=== PATIENT | female | born 1975 | race Caucasian/White ===

== ENCOUNTER 2016-12-24 17:02 | Emergency (ER) | payer OTHER ==
[2016-12-24 17:09] VITALS: BP 138/77; RESP 20
--- NOTE | 2016-12-24 17:41 | ED ---
General Adult HPI - General Chief complaint: Chest Pain Stated complaint: Rib Pain Time Seen by Provider: 12/24/16 17:20 Source: patient, family, RN notes reviewed Mode of arrival: ambulatory Limitations: no limitations - History of Present Illness Initial comments: 41-year-old female presenting for right chest pain. Patient states that she has pain in her right chest towards the rear portion of her breast in her axilla when she takes deep breaths only. The pain has been present for the past 3 days. She denies any injury or strain prior to the onset of the pain. She does smoke tobacco. States she has tried naproxen without significant improvement of the pain. She denies any significant medical history other than cervical cancer several years ago which was treated locally. She does not currently take any medications. She denies any anterior chest pain or shortness of breath. She denies known cardiac history. - Related Data Home Medications Medication Instructions Recorded Confirmed No Known Home Medications [No 12/24/16 12/24/16 Known Home Medications] Allergies Allergy/AdvReac Type Severity Reaction Status Date / Time morphine Allergy Confusion Verified 12/24/16 17:47 Review of Systems ROS Statement: Those systems with pertinent positive or pertinent negative responses have been documented in the HPI. ROS Other: All systems not noted in ROS Statement are negative. Past Medical History Past Medical History: Cancer History of Any Multi-Drug Resistant Organisms: None Reported Past Surgical History: Section Additional Past Surgical History / Comment(s): cervical cancer Past Psychological History: No Psychological Hx Reported Smoking Status: Current every day smoker Past Alcohol Use History: Occasional Past Drug Use History: Marijuana General Exam - General Exam Comments Initial Comments: General: Awake and Alert. No acute distress. Does not appear acutely ill. Eyes: LOREE, EOM intact. No nystagmus. No scleral icterus. HENT: Atraumatic, normocephalic. Mucous membranes moist. Trachea midline. Neck: The neck is supple, there is no tenderness or JVD. Cardiovascular: Regular rate and rhythm. No murmur, rub, or gallop is appreciated. Distal pulses intact. Respiratory: Lungs are clear to auscultation bilaterally. No wheezes, rales, rhonchi. No respiratory distress. Gastrointestinal: Soft, Nontender. No rebound or guarding. Non-distended. No masses or organomegaly noted. No CVA tenderness. Musculoskeletal: No tenderness. Normal ROM. No gross deformity. No strength deficits. Neurological: A&Ox3. CN II-XII grossly intact, There are no obvious motor or sensory deficits. Coordination appears grossly intact. Speech is normal. Skin: Skin is warm and dry and no rashes or lesions are noted. Psychiatric: Cooperative, appropriate mood & affect, normal judgment. Limitations: no limitations Course Vital Signs 12/24/16 17:07 Temperature 98.9 F Pulse Rate 100 Respiratory 20 Rate Blood Pressure 138/77 O2 Sat by Pulse 98 Oximetry Medical Decision Making - Medical Decision Making 41-year-old female presenting for right chest pain. There is no reproducible tenderness on exam. She states pain is present with deep inspiration only. Patient states she believes it is just a pulled muscle. She states that she has nothing wrong with her heart and declines EKG at this time. Discussed rationale for screening EKG in the setting of chest pain, patient voices understanding. Patient declines pain medication at this time. Chest x-ray performed and unremarkable. Discussed likely musculoskeletal pain and continued treatment with anti- inflammatory medications. Patient was offered further evaluation and lab work. Discussed consideration for possible PE although patient states no history of blood clot and declines any further testing at this time. Discussed NSAIDs for pain management. Patient declines any other pain medications at this time. Discussed close follow-up with PCP. Discussed concerning signs symptoms for immediate return to the ED. Discussed recommendation and benefits of smoking cessation. Patient and are agreeable with plan of discharge home. - Radiology Data Radiology results: report reviewed, image reviewed Disposition Clinical Impression: Right-sided chest wall pain, Tobacco abuse Disposition: HOME SELF-CARE Condition: Stable Instructions: Costochondritis (ED), How to Stop Smoking (ED) Additional Instructions: Please take Tylenol, Motrin, or Naproxen for pain as needed. Referrals: None,Stated [Primary Care Provider] - 1-2 days Time of Disposition: 18:39
--- NOTE | 2016-12-24 18:10 | XR ---
EXAMINATION TYPE: XR chest 2V DATE OF EXAM: 12/24/2016 5:53 PM COMPARISON: NONE HISTORY: Chest pain TECHNIQUE: Frontal and lateral views of the chest are obtained. FINDINGS: Heart and mediastinum are normal. Lungs are clear. Diaphragm is normal. Bony thorax is int act. IMPRESSION: Normal chest.
[2016-12-24 19:02] VITALS: PULSE 78; TEMP 97.9
== END 2016-12-24 19:02 | disposition home or self-care (01) ==
LOC: EC 17:02
DX: R07.89 Other chest pain (principal); F17.200 Nicotine dependence, unspecified, uncomplicated; Z88.5 Allergy status to narcotic agent
CPT/HCPCS: 71020; 99284

== ENCOUNTER 2018-04-04 15:29 | Emergency (ER) | payer OTHER ==
[2018-04-04 15:33] VITALS: BP 108/73; PULSE 84; RESP 20; TEMP 98.8
--- NOTE | 2018-04-04 16:09 | XR ---
Right knee HISTORY: Pain 3 views of the right knee Bone mineralization, joint spaces and alignment are maintained. No evident joint effusion. Suspect so me minimal marginal spurring medial compartment. IMPRESSION: Suspect osteoarthritis. Knee MRI may be of benefit.
--- NOTE | 2018-04-04 16:12 | ED ---
General Adult HPI - General Chief complaint: Extremity Injury, Lower Stated complaint: Knee Pain Time Seen by Provider: 04/04/18 15:34 Source: patient, RN notes reviewed Mode of arrival: ambulatory Limitations: no limitations - History of Present Illness Initial comments: 42-year-old female presents to the emergency department for a chief complaint of right knee pain 2 weeks. Patient states that she was frying rash when some fell on the floor and she slipped tonight. Patient states she did not fall all the way to the ground but has had knee pain ever since. Patient states the pain is on the anterior portion of the knee. She denies pain behind the knee or in the calf. Patient denies any ankle or foot pain. Patient did not hit her head or sustain any other injuries. Patient states she can walk on it but tries not to bend it when doing so. Patient states bending it makes it worse. Patient has not taken anything for pain because she took Motrin when it first happened and she thinks the Motrin made it worse. Patient does not want anything for pain in the emergency department. Patient has no other complaints at this time including shortness of breath, chest pain, abdominal pain, nausea or vomiting, headache, or visual changes. - Related Data Previous Rx's Medication Instructions Recorded Ibuprofen [Motrin] 600 mg PO Q6HR PRN #20 tab 04/04/18 Allergies Allergy/AdvReac Type Severity Reaction Status Date / Time morphine Allergy Confusion Verified 04/04/18 15:33 Review of Systems ROS Statement: Those systems with pertinent positive or pertinent negative responses have been documented in the HPI. ROS Other: All systems not noted in ROS Statement are negative. Past Medical History Past Medical History: Cancer Additional Past Medical History / Comment(s): cervical cancer History of Any Multi-Drug Resistant Organisms: None Reported Past Surgical History: Section Additional Past Surgical History / Comment(s): cervical cancer Past Psychological History: No Psychological Hx Reported Smoking Status: Current every day smoker Past Alcohol Use History: Occasional Past Drug Use History: Marijuana General Exam Limitations: no limitations General appearance: alert, in no apparent distress Head exam: Present: atraumatic, normocephalic, normal inspection Eye exam: Present: normal appearance ENT exam: Present: normal exam, mucous membranes moist Neck exam: Present: normal inspection, full ROM. Absent: tenderness, meningismus, lymphadenopathy Respiratory exam: Present: normal lung sounds bilaterally. Absent: respiratory distress, wheezes, rales, rhonchi, stridor Cardiovascular Exam: Present: regular rate, normal rhythm, normal heart sounds. Absent: systolic murmur, diastolic murmur, rubs, gallop, clicks Extremities exam: Present: tenderness (Patient has right anterior knee tenderness. No tenderness on the posterior aspect of the right knee.), normal capillary refill (Refill less than 2 seconds and radial pulse 2+ in the right lower extremity.), other (Sensation intact in the right lower extremity.). Absent: full ROM (Patient has about 30 flexion of the right knee due to pain.) , joint swelling (No swelling, redness, ecchymosis, cellulitic changes, or signs of infection noted in the right knee.), calf tenderness (No tenderness in the right calf. Negative Homans sign.) Course Vital Signs 04/04/18 15:31 Temperature 98.8 F Pulse Rate 84 Respiratory 20 Rate Blood Pressure 108/73 O2 Sat by Pulse 99 Oximetry Medical Decision Making - Medical Decision Making 42-year-old female with chief complaint of right knee pain after falling 2 weeks ago. Pain has been consistent since that time. Patient has not been taking Motrin or Tylenol. She has been icing it. Patient has limited flexion of the right knee to about 30. No cellulitic changes, signs of infection, ecchymosis, swelling. No pain in the calf or posterior right knee. Negative Homans sign. Patient visualized walking on right knee. X-ray of the right knee shows bone mineralization, joint spaces, and alignment are maintained. No evidence of joint effusion. Suspect some minimal marginal spurring in the medial compartment. Suspect osteoarthritis. Patient has a nice brace on already and will use that instead of an Tima wrap. She was given Rocephin for Motrin. Patient will follow-up with orthopedics in one to 2 days. She will return to the emergency Department if she has any worsening symptoms. Disposition Clinical Impression: Knee pain, right Disposition: HOME SELF-CARE Condition: Good Instructions: Knee Pain (ED) Additional Instructions: Please take Motrin as needed for pain and to reduce inflammation. Please rest ice and elevate the right knee. Use brace for comfort. You may use crutches if needed for ambulation. Follow-up with orthopedics in one to 2 days. Return to the emergency department if you have any worsening symptoms. Prescriptions: Ibuprofen [Motrin] 600 mg PO Q6HR PRN #20 tab PRN Reason: Pain Is patient prescribed a controlled substance at d/c from ED?: No Referrals: Blair Sargent DO [Doctor of Osteopathic Medicine] - 1-2 days Time of Disposition: 16:23
== END 2018-04-04 16:37 | disposition home or self-care (01) ==
LOC: EC 15:29
DX: M25.561 Pain in right knee (principal); F17.200 Nicotine dependence, unspecified, uncomplicated; Z88.5 Allergy status to narcotic agent
CPT/HCPCS: 99283

== ENCOUNTER → 2018-04-06 | Outpatient (CLI) | payer OTHER ==
--- NOTE | 2018-04-06 14:56 | MR ---
EXAMINATION TYPE: MR knee RT wo con DATE OF EXAM: 04/06/2018 COMPARISON: Radiographs 04/04/2018 HISTORY: 42-year-old female Right knee pain / swelling x2 weeks, slipped and fall TECHNIQUE: Multiplanar, multisequence imaging of the right knee is performed without IV contrast. FINDINGS: ACL, PCL, MCL, and LCL complex are intact. There is some degenerative signal in the posterior horn of the medial meniscus without discrete menis nakia tear. There is moderate irregular cartilage loss along the mid weightbearing aspect of the medial compartment. Lateral meniscus is intact with mild diffuse cartilage thinning. The patellofemoral compartment cartilage volume appears maintained. However, there is extensive bone bruise involving the patella with coronal T1 sequence suggesting com plex, multidirectional incomplete fractures of the patella, present, refer to coronal image 5. There is no displaced fracture fragment. Gas edematous change within the quadriceps musculature and additio nal edema tracking along the planes of the quadriceps tendon. Some interstitial tearing is suggested. Edema within the suprapatellar fat pad and prominent prepatellar soft tissue swelling is also demons trated. A trace, 2 mm thick prepatellar bursitis is noted. Trace fluid within the deep infrapatellar bursa as well. No significant knee joint effusion. No significant Walton's cyst. Normal popliteal artery anatomy in muscle bulk. No suspicious bone marrow replacement. IMPRESSION: 1. Severe patellar bone bruise with multiple incomplete fracture lines. No displaced fracture fragmen t. 2. Associated soft tissue swelling, quadriceps muscle strain, and some reactive fluid or minimal inte rstitial tearing along the quadriceps tendon. 3. Mild medial compartmental osteoarthrosis.
== END | disposition home or self-care (01) ==
LOC: RADMRIMAIN 14:01
PROVIDERS: ATTEND Internal Medicine
DX: S82.001A Unspecified fracture of right patella, initial encounter for closed fracture (principal); M17.11 Unilateral primary osteoarthritis, right knee

== ENCOUNTER 2019-08-01 08:03 | Emergency (ER) | payer OTHER ==
[2019-08-01 08:08] VITALS: RESP 16
[2019-08-01] MEDS ORDERED: SODIUM CHLORIDE 0.9% 1,000 ML IV STA ×2 (08:20)
[2019-08-01] MEDS ORDERED: methylPREDNISolone SOD SUCCI 125 MG/2 ML VIAL IV STA (08:20)
[2019-08-01] MEDS ORDERED: IPRATROPIUM-ALBUTEROL 3 ML NEB INHALATION STA ×2 (08:20→10:12)
--- NOTE | 2019-08-01 08:25 | ED ---
SOB HPI - General Chief Complaint: Shortness of Breath Stated Complaint: SOB Time Seen by Provider: 08/01/19 08:05 Source: EMS, RN notes reviewed, old records reviewed Mode of arrival: EMS Limitations: no limitations - History of Present Illness Initial Comments: Patient is a 43-year-old female, history of smoker, she presents today for evaluation for cough congestion, shortness of breath. She reports that symptoms started with upper respiratory congestion ALLERGIES 2 weeks ago. She's been taking Mucinex, and ALLERGY medication with worsening symptoms Patient states it feels like infection is also subtle than to her lungs and chest. Patient states that she has had a relatively nonproductive cough but does have bronchospasms taking deep breath. Patient states that she has not been hospitalized or diagnosed with pneumonia in the past. Patient has had no history of sick contacts she is aware of. she is a smoker. - Related Data Home Medications Medication Instructions Recorded Confirmed diphenhydrAMINE HCL [Children's 25 mg PO Q6H PRN 08/01/19 08/01/19 Benadryl Allergy] guaiFENesin SYRUP 100MG/5ML 200 mg PO TID PRN 08/01/19 08/01/19 [Robitussin] Previous Rx's Medication Instructions Recorded Ipratropium-Albuterol Nebulize 3 ml INHALATION TID #30 neb 08/01/19 [Duoneb 0.5 mg-3 mg/3 ml Soln] Levofloxacin [Levaquin] 750 mg PO DAILY #5 tab 08/01/19 predniSONE 50 mg PO DAILY #5 tablet 08/01/19 Allergies Allergy/AdvReac Type Severity Reaction Status Date / Time morphine AdvReac Confusion Verified 08/01/19 08:58 Review of Systems ROS Statement: Those systems with pertinent positive or pertinent negative responses have been documented in the HPI. ROS Other: All systems not noted in ROS Statement are negative. Past Medical History Past Medical History: Cancer Additional Past Medical History / Comment(s): cervical cancer History of Any Multi-Drug Resistant Organisms: None Reported Past Surgical History: Section Additional Past Surgical History / Comment(s): cervical cancer Past Psychological History: No Psychological Hx Reported Smoking Status: Current every day smoker Past Alcohol Use History: Occasional Past Drug Use History: Marijuana General Exam - General Exam Comments Initial Comments: 43-year-old female. Alert and oriented. No distress. Limitations: no limitations General appearance: alert, in no apparent distress Head exam: Present: atraumatic, normocephalic, normal inspection Eye exam: Present: normal appearance, PERRL, EOMI. Absent: scleral icterus, conjunctival injection, periorbital swelling ENT exam: Present: normal exam, mucous membranes moist Neck exam: Present: normal inspection. Absent: tenderness, meningismus, lymphadenopathy Respiratory exam: Present: wheezes (bilaterally ). Absent: normal lung sounds bilaterally, respiratory distress, rales, rhonchi, stridor Cardiovascular Exam: Present: regular rate, normal rhythm, normal heart sounds. Absent: systolic murmur, diastolic murmur, rubs, gallop, clicks GI/Abdominal exam: Present: soft, normal bowel sounds. Absent: distended, tenderness, guarding, rebound, rigid Extremities exam: Present: normal inspection, full ROM, normal capillary refill. Absent: tenderness, pedal edema, joint swelling, calf tenderness Back exam: Present: normal inspection Neurological exam: Present: alert, oriented X3, CN II-XII intact Psychiatric exam: Present: normal affect, normal mood Skin exam: Present: warm, dry, intact, normal color. Absent: rash Course Vital Signs 08/01/19 08/01/19 08/01/19 08:04 08:21 08:39 Temperature 97.7 F Pulse Rate 86 81 Respiratory 16 16 Rate Blood Pressure 114/80 O2 Sat by Pulse 98 Oximetry 08/01/19 08/01/19 08/01/19 09:06 10:16 10:27 Temperature Pulse Rate 88 80 95 Respiratory Rate Blood Pressure O2 Sat by Pulse Oximetry - Reevaluation(s) Reevaluation #1: 08/01/19 10:58 Patient was reevaluated this time, wrist comfortably in bed. She continues to have wheezing, without oxygen Patient is 88-97% on room air. We did an ambulatory test and her pulse ox went to his was 95% on room air. Patient returned resting comfortably in bed. Reevaluation #2: 08/01/19 11:01 Smoking cessation discussed over 5 minutes. Medical Decision Making - Medical Decision Making This is a 43-year-old female, presents for evaluation for difficulty breathing, cough congestion worsening over the past 2 weeks. She reported emergency De partment via EMS with diffuse wheezing. She was given breathing treatments, IV Solu-Medrol blood work obtained. Blood work was reviewed and unremarkable. EKG shows no acute changes. Chest x-ray shows evidence of asthma or COPD. After subsequent breathing treatment she does continue to have wheezing, but oxygen saturation on room air is been 95-98%. Patient is ambulatory test on the lowest pulse ox was 95% Patient reports that she does have low income. Patient reports she is concerned with getting her medications. I discussed the Patient with continuing to be admitted for observation. She states she prefers to go home to be with her family on holiday of . I discussed the Patient would need steroids, breathing treatments and we'll put the Patient with azithromycin for atypical pneumonia. I discussed the Patient can follow-up with primary care doctor promptly. Always returning to the ED if difficulty breathing persists. All questions were answered and return parameters were discussed. - Lab Data Result diagrams: 08/01/19 08:25 08/01/19 09:09 Lab Results 08/01/19 08/01/19 08/01/19 Range/Units 08:25 09:09 09:09 WBC 9.2 (3.8-10.6) k/uL RBC 5.08 (3.80-5.40) m/uL Hgb 15.4 (11.4-16.0) gm/dL Hct 46.3 H (34.0-46.0) % MCV 91.1 (80.0-100.0) fL MCH 30.3 (25.0-35.0) pg MCHC 33.2 (31.0-37.0) g/dL RDW 13.4 (11.5-15.5) % Plt Count 216 (150-450) k/uL Neutrophils % 69 % Lymphocytes % 14 % Monocytes % 5 % Eosinophils % 9 % Basophils % 2 % Neutrophils # 6.3 (1.3-7.7) k/uL Lymphocytes # 1.3 (1.0-4.8) k/uL Monocytes # 0.4 (0-1.0) k/uL Eosinophils # 0.9 H (0-0.7) k/uL Basophils # 0.2 (0-0.2) k/uL PT 10.8 (9.0-12.0) sec INR 1.0 (<1.2) APTT 23.6 (22.0-30.0) sec Sodium (137-145) mmol/L Potassium (3.5-5.1) mmol/L Chloride (98-107) mmol/L Carbon Dioxide (22-30) mmol/L Anion Gap mmol/L BUN (7-17) mg/dL Creatinine (0.52-1.04) mg/dL Est GFR (CKD-EPI)AfAm (>60 ml/min/1.73 sqM) Est GFR (CKD-EPI)NonAf (>60 ml/min/1.73 sqM) Glucose (74-99) mg/dL Calcium (8.4-10.2) mg/dL Magnesium (1.6-2.3) mg/dL Total Bilirubin (0.2-1.3) mg/dL AST (14-36) U/L ALT (9-52) U/L Alkaline Phosphatase (38-126) U/L Troponin I <0.012 (0.000-0.034) ng/mL Total Protein (6.3-8.2) g/dL Albumin (3.5-5.0) g/dL 08/01/19 Range/Units 09:09 WBC (3.8-10.6) k/uL RBC (3.80-5.40) m/uL Hgb (11.4-16.0) gm/dL Hct (34.0-46.0) % MCV (80.0-100.0) fL MCH (25.0-35.0) pg MCHC (31.0-37.0) g/dL RDW (11.5-15.5) % Plt Count (150-450) k/uL Neutrophils % % Lymphocytes % % Monocytes % % Eosinophils % % Basophils % % Neutrophils # (1.3-7.7) k/uL Lymphocytes # (1.0-4.8) k/uL Monocytes # (0-1.0) k/uL Eosinophils # (0-0.7) k/uL Basophils # (0-0.2) k/uL PT (9.0-12.0) sec INR (<1.2) APTT (22.0-30.0) sec Sodium 143 (137-145) mmol/L Potassium 4.1 (3.5-5.1) mmol/L Chloride 111 H (98-107) mmol/L Carbon Dioxide 21 L (22-30) mmol/L Anion Gap 11 mmol/L BUN 16 (7-17) mg/dL Creatinine 0.71 (0.52-1.04) mg/dL Est GFR (CKD-EPI)AfAm >90 (>60 ml/min/1.73 sqM) Est GFR (CKD-EPI)NonAf >90 (>60 ml/min/1.73 sqM) Glucose 105 H (74-99) mg/dL Calcium 9.0 (8.4-10.2) mg/dL Magnesium 1.8 (1.6-2.3) mg/dL Total Bilirubin 0.7 (0.2-1.3) mg/dL AST 25 (14-36) U/L ALT 31 (9-52) U/L Alkaline Phosphatase 62 (38-126) U/L Troponin I (0.000-0.034) ng/mL Total Protein 6.9 (6.3-8.2) g/dL Albumin 4.0 (3.5-5.0) g/dL 08/01/19 09:06 EKG shows sinus rhythm bilateral atrial enlargement. Abnormal EKG. Ventricular rate of 90 bpm. Verbal 134 ms. QS duration 76 most seconds. QT QTc is 364/445 ms. - Radiology Data Radiology results: report reviewed X-rays shows correlate for asthma or COPD. Disposition Clinical Impression: COPD exacerbation Disposition: HOME SELF-CARE Condition: Good Instructions (If sedation given, give patient instructions): COPD (Chronic Obstructive Pulmonary Disease) (ED) Additional Instructions: Patient advised to use a breathing treatment, and finished steroids and antibiotics as prescribed. Continue [id number] medications and decongestant such as Mucinex. Return to the emergency department if any alarming signs or symptoms occur. Patient should quit smoking. Prescriptions: Ipratropium-Albuterol Nebulize [Duoneb 0.5 mg-3 mg/3 ml Soln] 3 ml INHALATION TID #30 neb Levofloxacin [Levaquin] 750 mg PO DAILY #5 tab predniSONE 50 mg PO DAILY #5 tablet Is patient prescribed a controlled substance at d/c from ED?: No Referrals: None,Stated [Primary Care Provider] - 1-2 days Mateo Mcmanus MD [REFERRING] - 1-2 days Pelon Razo DO [Doctor of Osteopathic Medicine] - 1-2 days Time of Disposition: 11:01
[2019-08-01 08:38] LABS: Basophils # (A) 0.2 k/uL (0-0.2); Basophils % (A) 2 %; Eosinophils # (A) 0.9 k/uL (0-0.7); Eosinophils % (A) 9 %; HCT 46.3 % (34.0-46.0); HGB 15.4 gm/dL (11.4-16.0); Lymphocytes # (A) 1.3 k/uL (1.0-4.8); Lymphocytes % (A) 14 %; MCH 30.3 pg (25.0-35.0); MCHC 33.2 g/dL (31.0-37.0); MCV 91.1 fL (80.0-100.0); Mean Platelet Volume 8.7; Monocytes # (A) 0.4 k/uL (0-1.0); Monocytes % (A) 5 %; Neutrophils # (A) 6.3 k/uL (1.3-7.7); Neutrophils % (A) 69 %; Platelet Count 216 k/uL (150-450); RBC 5.08 m/uL (3.80-5.40); RDW 13.4 % (11.5-15.5); WBC 9.2 k/uL (3.8-10.6)
--- NOTE | 2019-08-01 09:30 | XR ---
EXAMINATION TYPE: XR chest 2V DATE OF EXAM: 08/01/2019 COMPARISON: 12/24/2016 TECHNIQUE: PA and lateral views submitted. HISTORY: Shortness of breath FINDINGS: The lungs are clear and there is no pneumothorax, pleural effusion, or focal pneumonia. There is a pectus deformity. Mild hyperinflation. IMPRESSION: 1. Correlate for asthma or COPD..
[2019-08-01 09:36] LABS: Partial Thromboplastin Time 23.6 sec (22.0-30.0); Prothrombin Time 10.8 sec (9.0-12.0)
[2019-08-01 09:39] LABS: ALT 31 U/L (9-52); AST 25 U/L (14-36); African American GFR (CKD) >90 (>60 ml/min/1.73 sqM); Alkaline Phosphatase 62 U/L (38-126); Anion Gap 11 mmol/L; Blood Urea Nitrogen 16 mg/dL (7-17); Carbon Dioxide 21 mmol/L (22-30); Chloride 111 mmol/L (98-107); Glucose 105 mg/dL (74-99); Magnesium 1.8 mg/dL (1.6-2.3); Non-African American GFR(CKD) >90 (>60 ml/min/1.73 sqM); Potassium 4.1 mmol/L (3.5-5.1); Sodium 143 mmol/L (137-145); Total Bilirubin 0.7 mg/dL (0.2-1.3); Total Protein 6.9 g/dL (6.3-8.2)
[2019-08-01 11:28] VITALS: BP 134/72; PULSE 76; TEMP 98
== END 2019-08-01 11:27 | disposition home or self-care (01) ==
LOC: EC 08:03
DX: J44.1 Chronic obstructive pulmonary disease with (acute) exacerbation (principal); F17.200 Nicotine dependence, unspecified, uncomplicated; Z88.5 Allergy status to narcotic agent; Z85.41 Personal history of malignant neoplasm of cervix uteri
CPT/HCPCS: 36415; 94640 ×2; 93005; 80053; 83735; 84484; 85025; 85610; 85730; 71046; 99285; 96374; 96361 ×3; J2930

== ENCOUNTER 2019-08-02 07:50 | Emergency (ER) | payer OTHER ==
[2019-08-02] MEDS ORDERED: methylPREDNISolone SOD SUCCI 125 MG/2 ML VIAL IM ONE (08:06)
[2019-08-02] MEDS ORDERED: ALBUTEROL NEBULIZED 5 MG, IPRATROPIUM NEBULIZED 0.5 MG, SODIUM CHLORIDE 0.9% NEBULIZ 9 ML INHALATION ONE ×3 (08:06)
[2019-08-02] MEDS ORDERED: ALBUTEROL NEBULIZED 2.5 MG/3 ML INHALATION STA ×2 (08:39→08:48)
--- NOTE | 2019-08-02 08:39 | ED ---
General Adult HPI - General Chief complaint: Shortness of Breath Stated complaint: SOB, poss pneumonia Time Seen by Provider: 08/02/19 07:55 Source: patient, RN notes reviewed Mode of arrival: ambulatory Limitations: no limitations - History of Present Illness Initial comments: tHIS IS A 43-YEAR-OLD FEMALE WHO PRESENTS EMERGENCY DEPARTMENT WITH PAST MEDICAL HISTORY SIGNIFICANT FOR copd. pATIENT CONTINUES TO SMOKE. pATIENT WAS SEEN IN THE EMERGENCY DEPARTMENT YESTERDAY AND GIVEN A PRESCRIPTION FOR ALBUTEROL inhaler as well as prednisone and Levaquin. Patient did not fill any of her prescriptions. Patient states the breathing is still bad today and she comes back to the emergency department because she states she can't afford all those medications. Patient denies any fever chills per patient denies any chest pain. Patient denies palpitations. Patient states she just can't breathe especially when she gets walking around. Patient denies any leg swelling or calf tenderness. Patient denies abdominal pain patient denies nausea vomiting diarrhea. - Related Data Home Medications Medication Instructions Recorded Confirmed diphenhydrAMINE HCL [Children's 25 mg PO Q6H PRN 08/01/19 08/02/19 Benadryl Allergy] guaiFENesin SYRUP 100MG/5ML 200 mg PO TID PRN 08/01/19 08/02/19 [Robitussin] Previous Rx's Medication Instructions Recorded Albuterol Inhaler [Ventolin Hfa 1 - 2 puff INHALATION Q6H #2 08/02/19 Inhaler] inhaler Ciprofloxacin HCl [Cipro] 500 mg PO Q12HR #14 tablet 08/02/19 predniSONE 40 mg PO DAILY #8 tab 08/02/19 Allergies Allergy/AdvReac Type Severity Reaction Status Date / Time morphine AdvReac Confusion Verified 08/02/19 07:54 Review of Systems ROS Statement: Those systems with pertinent positive or pertinent negative responses have been documented in the HPI. ROS Other: All systems not noted in ROS Statement are negative. Past Medical History Past Medical History: Cancer Additional Past Medical History / Comment(s): cervical cancer History of Any Multi-Drug Resistant Organisms: None Reported Past Surgical History: Section Additional Past Surgical History / Comment(s): cervical cancer Past Psychological History: No Psychological Hx Reported Smoking Status: Current every day smoker Past Alcohol Use History: Occasional Past Drug Use History: Marijuana General Exam - General Exam Comments Initial Comments: GENERAL: Patient is well-developed and well-nourished. Patient is nontoxic and well- hydrated and is in mild distress. ENT: Neck is soft and supple. No significant lymphadenopathy is noted. Oropharynx is clear. Moist mucous membranes. Neck has full range of motion without eliciting any pain. EYES: The sclera were anicteric and conjunctiva were pink and moist. Extraocular movements were intact and pupils were equal round and reactive to light. Eyelids were unremarkable. PULMONARY: Patient is diffusely wheezing CARDIOVASCULAR: There is a regular rate and rhythm without any murmurs gallops or rubs. ABDOMEN: Soft and nontender with normal bowel sounds. No palpable organomegaly was noted. There is no palpable pulsatile mass. SKIN: Skin is clear with no lesions or rashes and otherwise unremarkable. NEUROLOGIC: Patient is alert and oriented x3. Cranial nerves II through XII are grossly intact. Motor and sensory are also intact. Normal speech, volume and content. Symmetrical smile. MUSCULOSKELETAL: Normal extremities with adequate strength and full range of motion. No lower extremity swelling or edema. No calf tenderness. LYMPHATICS: No significant lymphadenopathy is noted PSYCHIATRIC: Normal psychiatric evaluation. Limitations: no limitations Course Vital Signs 08/02/19 08/02/19 08/02/19 07:54 08:18 08:37 Temperature 98.1 F Pulse Rate 98 98 100 Respiratory 16 Rate Blood Pressure 125/81 O2 Sat by Pulse 92 L Oximetry 08/02/19 08/02/19 08/02/19 09:12 09:24 09:29 Temperature 98.7 F Pulse Rate 102 H 102 H 81 Respiratory 22 Rate Blood Pressure 115/93 O2 Sat by Pulse 98 Oximetry Medical Decision Making - Medical Decision Making I reviewed x-ray results and laboratories from yesterday. Patient received 2 albuterol treatments consecutively and improved her air movement as well as decreased wheezing. Patient received a third breathing treatment was feeling considerably better. Patient also received steroids emergency department. I discussed smoking cessation for greater than 3 minutes. The risks of smoking were discussed with the patient including but not limited to risks of cancer, stroke, coronary artery disease and COPD. Also discussed with the patient were multiple methods of quitting smoking. Lastly we discussed the financial costs of smoking. Patient continued wheezing and stated she probably won't be able to afford the antibiotics I told the patient she could be admitted and we would keep her overnight. 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 Disposition Clinical Impression: Bronchitis with bronchospasm Disposition: HOME SELF-CARE Instructions (If sedation given, give patient instructions): How to Stop Sm oking (ED), Acute Bronchitis (ED), Bronchospasm (ED) Additional Instructions: Patient should stop smoking immediately Prescriptions: Ciprofloxacin HCl [Cipro] 500 mg PO Q12HR #14 tablet predniSONE 40 mg PO DAILY #8 tab Albuterol Inhaler [Ventolin Hfa Inhaler] 1 - 2 puff INHALATION Q6H #2 inhaler Is patient prescribed a controlled substance at d/c from ED?: No Referrals: None,Stated [Primary Care Provider] - 1-2 days Time of Disposition: 09:18
[2019-08-02] MEDS ORDERED: IPRATROPIUM-ALBUTEROL 3 ML NEB INHALATION STA (09:03)
[2019-08-02 09:30] VITALS: BP 115/93; PULSE 81; RESP 22; TEMP 98.7
== END 2019-08-02 10:26 | disposition home or self-care (01) ==
LOC: EC 07:50
DX: J20.9 Acute bronchitis, unspecified (principal); F17.200 Nicotine dependence, unspecified, uncomplicated; Z71.6 Tobacco abuse counseling; Z88.5 Allergy status to narcotic agent; Z85.41 Personal history of malignant neoplasm of cervix uteri
CPT/HCPCS: 94640 ×2; 99284; 96372; J2930

== ENCOUNTER → 2020-07-01 | Outpatient (CLI) | payer SELFPAY ==
--- NOTE | 2020-07-01 13:24 | MM ---
Reason for exam: clinical finding. History: Patient has history of other cancer at age 30. Family history of breast cancer in father at age 36, breast cancer in maternal grandmother, and breast cancer in paternal grandmother. Indicated problem(s): lump or thickening in the right breast. Physical Findings: Nurse Summary: 3cm nodule in the right breast at 2 o'clock and a 2.5cm nodule in the right breast at 7 o'clock (nurse ariana). MG Diagnostic Mammo w CAD AUREA Bilateral CC and MLO view(s) were taken. The breast tissue is heterogeneously dense. This may lower the sensitivity of mammography. Finding #1: There is a 20 mm mass in the lower inner quadrant. Finding #2: There are grouped/clustered calcifications in the lower quadrant, central position of the right breast consistent with spiculated mass with calcifications 1.7cm. Enlarged right breast lymph nodes. There is a 2.5cm mass right upper central breast. These results were verbally communicated with the patient and result sheet given to the patient on 07/01/20. ASSESSMENT: Incomplete: need additional imaging evaluation, BI-RAD 0 RECOMMENDATION: Ultrasound of the right breast.
--- NOTE | 2020-07-01 13:28 | USB ---
Reason for exam: clinical finding. History: Patient has history of other cancer at age 30. Family history of breast cancer in father at age 36, breast cancer in maternal grandmother, and breast cancer in paternal grandmother. US Breast RT Right complete breast ultrasound includes all four quadrants, the retroareolar region and axilla. Finding demonstrates a 2.1 x 1.9 x 1.4cm irregular, angular, hypoechoic lesion at 4 o'clock, a 1.9 x 1.7 x 2.2cm irregular, angular, hypoechoic lesion at 6 o'clock and a 1.5 x 1.0 x 1.3cm oval, cystic lesion at 1 o'clock. Multiple enlarged nodes in axilla largest measuring 1.9 x 1.4cm. These results were verbally communicated with the patient and result sheet given to the patient on 07/01/20. ASSESSMENT: Highly suggestive of malignancy, BI-RAD 5 RECOMMENDATION: Ultrasound core biopsy of the right breast. Called office with mammographic findings and has scheduled an appointment for the patient for 07/10/20 at 12:[address] Turcios. Biopsy scheduled for 07/17/20 at 10:30. PRELIMINARY REPORT CALLED AND FAXED TO DR. TURCIOS ON 07/01/20.
== END | disposition home or self-care (01) ==
LOC: RADMAMWWP 09:51
PROVIDERS: ATTEND Nurse Practitioner Adult Health
DX: R92.8 Other abnormal and inconclusive findings on diagnostic imaging of breast (principal); N63.10 Unspecified lump in the right breast, unspecified quadrant; Z80.3 Family history of malignant neoplasm of breast
CPT/HCPCS: 77066

== ENCOUNTER → 2020-07-10 | Outpatient (CLI) | payer OTHER ==
[2020-07-10 12:33] VITALS: BP 109/77; PULSE 75; RESP 16; TEMP 98
--- NOTE | 2020-07-10 13:10 | P.GSHP ---
History of Present Illness H&P Date: 07/10/20 Chief Complaint: Abnormal right breast mammogram Iram is a 44-year-old white female who is seen in consultation for Tessa De La Cruz NP regarding a right breast monographic abnormality. The patient states that approximately 2 years ago she noted a lesion in her right breast which has increased in size. And then most recently she noted a second lesion in the lateral aspect of the right breast. A bilateral mammogram was performed on . This revealed a 20 mm mass in the lower inner quadrant of the right breast as well as group/cluster calcifications in the lower quadrant central position of the right breast consistent with spiculated mass with calcifications, there was also a 2.5 cm mass in the right upper central breast. Nothing of concern was noted in the left breast. The patient had a right breast ultrasound performed which revealed a 2.9 cm lesion at 4:00, a 2.2 cm lesion at 6:00, and a 1.5 cm lesion at 1:00. Multiple enlarged nodes in the axilla were noted. Other than the area in the right breast the patient has not noted any other lumps masses or nodules in her breast. She is complaining of any pain in the breast. No history of recent trauma or infection in the breast. No prior breast surgery. And no abnormal nipple discharge. The patient herself did have cervical cancer in 2004, at this time she is disease free from this. Caffeine: 5 cups/day Nicotine: ppd 28 years Theophylline:none Family History: patient: cervical cancer father: probable breast cancer paternal grandfather: breast and pancreatic cancer maternal grandmother and great grandmother: breast and one also had ovarian paternal aunt: thyroid cancer two cousins on fathers side: thyroid cancer Hormonal History: menarche: 14 , breast fed: yes, age at first : 21 periods: regular, dx at 35 with premenopause BCP: none hormones: none Surgical history: 1. 3 C-sections 2. 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 Social History: smoke: ppd 28 years alcohol: twice a week drugs: Marijuana daily since 2004, to sleep to increase appetite, for anxiety - Constitutional Constitutional: Reports sweats, Denies chills - EENT Comment: Presbyopia Eyes: denies blurred vision, denies pain Ears: deny: decreased hearing, tinnitus Ears, nose, mouth and throat: Denies headache, Denies sore throat - Breasts Breasts: bilateral: as per HPI - Cardiovascular Cardiovascular: Denies chest pain, Denies shortness of breath - Respiratory Comment: smoker - Gastrointestinal Gastrointestinal: Denies abdominal pain, Denies diarrhea, Denies nausea, Denies vomiting - Genitourinary (Female) Genitourinary: Denies dysuria, Denies hematuria - Menstruation Menstruation: Reports period normal - Musculoskeletal Comment: Arthritis, muscle cramps in her calves - Integumentary Integumentary: Denies pruritus, Denies rash - Neurological Neurological: Denies numbness, Denies weakness - Psychiatric Psychiatric: Denies anxiety, Denies depression - Endocrine Comment: weight gain Endocrine: Reports fatigue, Reports weight change - Hematologic/Lymphatic Comment: none - Allergic/Immunologic Allergic/Immunologic: Reports seasonal allergies Past Medical History Past Medical History: Cancer Additional Past Medical History / Comment(s): cervical cancer History of Any Multi-Drug Resistant Organisms: None Reported Past Surgical History: Section Additional Past Surgical History / Comment(s): cervical cancer Past Psychological History: No Psychological Hx Reported Smoking Status: Current every day smoker Past Alcohol Use History: Occasional Past Drug Use History: None Reported, Marijuana Medications and Allergies Allergies Allergy/AdvReac Type Severity Reaction Status Date / Time morphine AdvReac Confusion Verified 07/10/20 12:06 Surgical - Exam Vital Signs Temp Pulse Resp BP Pulse Ox 98.0 F 75 16 109/77 98 07/10/20 12:23 07/10/20 12:23 07/10/20 12:23 07/10/20 12:23 07/10/20 12:23 BMI 29.3 - General well developed, well nourished, no distress - Eyes normal ocular movement - ENT no hearing loss, no congestion - Neck no masses, trachea midline - Respiratory normal respiratory effort, clear to auscultation - Cardiovascular Rhythm: regular Heart Sounds: normal: S1, S2 - Abdomen Abdomen: soft, non tender, no guarding, no rigid, no rebound - Integumentary normal turgor - Neurologic no disoriented, no combative - Musculoskeletal normal gait, normal posture - Psychiatric oriented to time, oriented to person, oriented to place, speech is normal, memory intact Breast exam: BRA 36DD inspection: Bilateral grade 3 ptosis with some right areolar retraction Palpation: Right breast: Multi-positional exam fibrocystic changes, palpable abnormality at the 2 o'clock position which is approximately 2 cm in size, some areolar retraction at the 6 o'clock position with a second lesion approximately 2 cm in size at the 6 o'clock position A dominant masses or nodules of concern Right axilla: No specific adenopathy appreciated Left breast: Multi-positional exam fibrocystic changes, no dominant masses or nodules of concern Left axilla: No adenopathy of concern Results Mammogram and ultrasound results reviewed Assessment and Plan Assessment: Impression: 1. Abnormal mammogram and ultrasound right breast 2. Palpable mass right breast at 2:00 and at 6:00 Plan: 1. Right breast ultrasound-guided core biopsy of 2 lesions of concern as well as any lymph nodes which are of concern 2. Follow up after results of ultrasound-guided core biopsy 3. genetic testing CC: Tessa Flor skin benefits of the procedure discussed with the patient. She understands as does her fianc and she wishes to proceed. She has been scheduled for ultrasound-guided biopsy of the right breast I would ask that 2 areas in the breast as well as any lymph nodes that are suspicious be sampled. encounter 30 minutes, > 50% of time in planning and counselling
== END | disposition home or self-care (01) ==
LOC: WWCWWP 12:04
PROVIDERS: ATTEND Surgery
DX: Z53.9 Procedure and treatment not carried out, unspecified reason (principal)

== ENCOUNTER → 2020-07-27 | Day surgery (SDC) | payer OTHER ==
[2020-07-27 13:05] VITALS: RESP 16; TEMP 98
[2020-07-27 16:33] VITALS: BP 112/76; PULSE 74
--- NOTE | 2020-07-27 18:13 | USB ---
EXAMINATION TYPE: US biopsy breast VAD RT, US biopsy breast add'l VAD RT, US biopsy breast add'l VAD RT, US biopsy breast add'l VAD RT, MG postbiopsy diagnostic mammo RT wo CAD DATE OF EXAM: 07/27/2020 CLINICAL HISTORY: 44-year-old female palpable abnormalities right breast, strong family history of breast cancer, R92.8 Abnormal Mammogram. TECHNIQUE: Ultrasound guided core biopsy of 4 sites in the right breast. COMPARISON: 07/01/2020 FINDINGS: The procedure of ultrasound guided core biopsy was explained to the patient. Benefits, alternatives, and risks were discussed. An informed consent was then obtained. The patient was placed in supine positioning for imaging and for the procedure. After review of the initial mammogram, the large elongated mass at the 12:00 position was reexamined by ultrasound and showed a complex lesion with a cystic component. However, this measures up to 3.6 cm long and 1.4 cm wide when taking the soft tissue component into account. This is included in today's biopsy. The overlying skin was prepped and draped in usual sterile fashion. Lidocaine was used as anesthetic into the skin at each site in turn within the right breast. SITE 1: 12:00, indeterminate 3.6 cm elongated mammographic correlate with a smaller cystic component. The soft tissue portion was targeted for biopsy. Under ultrasound guidance, a 13-gauge vacuum-assisted mammotome biopsy gun was used to obtain 6 core samples. Following this, a coil clip was left in lesion. SITE 2: 4:00, poorly defined, very suspicious, palpable mass: Additional anesthesia into the subcutaneous tissues and at the lesion with a lidocaine/epinephrine mixture. Under ultrasound guidance, a 13-gauge vacuum- assisted mammotome biopsy gun was used to obtain 6 core samples. Following this, a wing clip was left in lesion. SITE 3: 6:00, irregular, vascular, very suspicious, palpable mass: Additional anesthesia into the subcutaneous tissues and at the lesion with lidocaine/epinephrine mixture. Under ultrasound guidance, a 13-gauge vacuum- assisted mammotome biopsy gun was used to obtain 5 core samples. Following this, a ribbon clip was left in lesion. SITE 4: Abnormal enlarged and replaced AXILLARY node: Additional anesthesia into the subcutaneous tissues and at the lesion with lidocaine/epinephrine mixture. 2 adjacent enlarged lymph nodes redemonstrated. The larger more superior node was targeted. Under ultrasound guidance, a 13-gauge vacuum-assisted mammotome biopsy gun was used to obtain 4 core samples. Following this, a Hydromark clip was left in lesion. The patient tolerated the procedure well without any immediate complication. The patient was kept in the radiology department for short stay after the procedure and then discharged home in stable condition. Post procedure mammogram demonstrates clips in place at the appropriate mammographic correlates. IMPRESSION: Successful, uncomplicated 4 site ultrasound guided core biopsy of the left breast: - 12:00 large elongated mixed lesion, indeterminate - 4:00, BI-RADS 5 lesion - 6:00, BI-RADS 5 lesion - Enlarged right axillary node (one of 2 enlarged nodes identified by ultrasound. The more superior node was targeted. Both are highly suspicious) Full pathology results to follow. Consider presurgical MRI to assess for any occult ipsilateral and contralateral disease. Pathology Results: Malignant A. RIGHT BREAST, 12:00, ULTRASOUND GUIDED CORE BIOPSY: Intraductal papilloma and proliferative fibrocystic changes including sclerosing adenosis with calcifications, cysts, fibrosis, apocrine metaplasia and columnar cell change. B. 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 See Surgical Pathology Cancer Case Summary and Comment. C. 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 See Surgical Pathology Cancer Case Summary and Comment. D. RIGHT AXILLA, CORE BIOPSY: Invasive poorly differentiated ductal carcinoma (Grade 3). See Surgical Pathology Cancer Case Summary and Comment. Recommendation Surgical consult of the right breast. MILENA
== END ==
LOC: RADUSWWP 12:53
PROVIDERS: ATTEND Surgery
DX: C50.911 Malignant neoplasm of unspecified site of right female breast (principal); N60.21 Fibroadenosis of right breast; Z17.0 Estrogen receptor positive status [ER+]; N60.31 Fibrosclerosis of right breast; N60.81 Other benign mammary dysplasias of right breast; Z80.3 Family history of malignant neoplasm of breast
CPT/HCPCS: 19083; 38505; 88305; 88342; 88341; 77065; 19084; A4648; J2001

== ENCOUNTER → 2020-08-06 | Outpatient (CLI) | payer OTHER ==
[2020-08-06 14:31] VITALS: BP 109/78; PULSE 86; RESP 16; TEMP 98.6
--- NOTE | 2020-08-06 15:14 | P.PN ---
Subjective Progress Note Date: 08/06/20 Principal diagnosis: Right breast carcinoma on ultrasound-guided core biopsy, 2 sites one is stage IA the second a stage IB Iram is a 44 -year-old white female status post ultrasound core biopsy of 4 areas in the right breast. Area 12:00 revealed intraductal papilloma, area 4:00 revealed invasive moderately differentiated ductal carcinoma grade 2 in intermediate grade DCIS, area 6:00 revealed invasive poorly differentiated ductal carcinoma grade 3 and high-grade DCIS, and right axillary core biopsy positive for invasive poorly differentiated ductal carcinoma. The lesion at 4:00 is felt to be a stage IB and the lesion at 6:00 is a stage IA. The patient tolerated the core biopsies without any difficulty. Of importance is the fact the patient has already had cervical cancer. Additionally her paternal grandfather and father of breast cancer. We feel it is very important that genetic testing be performed. Objective - Vital Signs Vital signs: Vital Signs Temp 98.6 F 08/06/20 14:26 Pulse 86 08/06/20 14:26 Resp 16 08/06/20 14:26 BP 109/78 08/06/20 14:26 Pulse Ox 93 L 08/06/20 14:26 Intake & Output 08/05/20 08/06/20 08/06/20 18:59 06:59 18:59 Weight 79.379 kg - Exam BMI 32 - Constitutional General appearance: Present: obese - EENT Eyes: Present: EOMI ENT: Present: hearing grossly normal - Respiratory Respiratory: bilateral: CTA - Cardiovascular Rhythm: regular Heart sounds: normal: S1, S2 - Integumentary Integumentary Comment(s): core biopsy sites clean and dry no infection Integumentary: Present: normal turgor - Musculoskeletal Musculoskeletal: Present: gait normal - Psychiatric Psychiatric: Present: A&O x's 3, appropriate affect, intact judgment & insight - Additional findings Additional findings: biopsy sites clean and dry Assessment and Plan Assessment: Impression: 1. 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 Appointment with medical oncology 2. Genetic testing 3. We have discussed breast MRI however the patient is adamant that she wants bilateral mastectomy and thus is not felt that MRI would be beneficial 4. Metastatic workup has been ordered. She has a bone scan and CT had chest abdomen and pelvis ordered. 5. Presentation of case at tumor board CC: Tessa De La Cruz encounter 60 minutes, > 50% of time spent in planning and counselling
== END | disposition home or self-care (01) ==
LOC: WWCWWP 14:12
PROVIDERS: ATTEND Surgery
DX: Z53.9 Procedure and treatment not carried out, unspecified reason (principal)

== ENCOUNTER → 2020-08-11 | Outpatient (CLI) | payer OTHER ==
--- NOTE | 2020-08-11 15:25 | NM ---
EXAMINATION TYPE: NM bone scan whole body DATE OF EXAM: 08/11/2020 COMPARISON: NONE HISTORY: Breast cancer Delayed whole-body scanning was performed following the injection of 22.6 mCi Tc 99m MDP. Images acq uired 3 hours post injection. FINDINGS: Abnormal uptake involving the knees, feet, and shoulders likely post arthritic. Faint abnormal uptake involving the thoracic and lumbar spine likely hypertrophic. No suspicious increased or reduced upta ke diagnostic of metastases IMPRESSION: 1. No diagnostic evidence of metastases
== END | disposition home or self-care (01) ==
LOC: RADNMMAIN 10:51
PROVIDERS: ATTEND Family Medicine
DX: C50.811 Malignant neoplasm of overlapping sites of right female breast (principal); Z88.5 Allergy status to narcotic agent
CPT/HCPCS: 78306; A9503

== ENCOUNTER → 2020-09-24 | Outpatient (CLI) | payer OTHER ==
--- NOTE | 2020-09-24 18:00 | ECHOF ---
Referral Reason:C50.811 breast ca,Z01.818 prechemo,Z03.89 obs mets MEASUREMENTS -------- HEIGHT: 157.5 cm WEIGHT: 79.4 kg BP: RVIDd: 3.3 cm (< 3.3) IVSd: 1.0 cm (0.6 - 1.1) LVIDd: 4.0 cm (3.9 - 5.3) LVPWd: 1.0 cm (0.6 - 1.1) IVSs: 1.2 cm LVIDs: 3.0 cm LVPWs: 1.6 cm ESV(Teich): 35 ml LAESV Index (A-L): 28.57 ml/m IVSd: 1.3 cm (0.6 - 1.1) LVIDd: 4.5 cm (3.9 - 5.3) LVPWd: 1.1 cm (0.6 - 1.1) IVSs: 1.5 cm LVIDs: 3.0 cm LVPWs: 1.7 cm EDV(Teich): 94 ml ESV(Teich): 35 ml EF(Teich): 63 % %FS: 34 % SV(Teich): 59 ml Ao Diam: 2.4 cm (2.0 - 3.7) AV Cusp: 2.0 cm (1.5 - 2.6) MV EXCURSION: 19.676 mm (> 18.000) MV EF SLOPE: 133 mm/s (70 - 150) EPSS: 0.8 cm MV E Xander: 0.89 m/s MV DecT: 209 ms MV A Xander: 0.77 m/s MV E/A Ratio: 1.15 RAP: 5.00 mmHg RVSP: 33.98 mmHg FINDINGS -------- Sinus rhythm. This was a technically adequate study. The left ventricular size is normal. Left ventricular wall thickness is normal. Overall left vent ricular systolic function is low-normal with, an EF between 50 - 55 %. The diastolic filling patter n is normal for the age of the patient 7.07. The right ventricle is mildly enlarged. Normal LA size by volume 22+/-6 ml/m2. The right atrial size is normal. Interatrial and interventricular septum intact. Trace to mild aortic regurgitation. There is no evidence of aortic stenosis. Mild mitral regurgitation is present. Mild tricuspid regurgitation present. The right ventricular systolic pressure, as measured by Doppl er, is 33.98mmHg. There is no pulmonic regurgitation present. The aortic root size is normal. Normal inferior vena cava with normal inspiratory collapse consistent with estimated right atrial pre ssure of 5 mmHg. There is no pericardial effusion. CONCLUSIONS -------- 1. The left ventricular size is normal. 2. Left ventricular wall thickness is normal. 3. Overall left ventricular systolic function is low-normal with, an EF between 50 - 55 %. 4. The diastolic filling pattern is normal for the age of the patient 7.07 5. The right ventricle is mildly enlarged. 6. Trace to mild aortic regurgitation. 7. Mild mitral regurgitation is present. 8. Mild tricuspid regurgitation present. 9. The right ventricular systolic pressure, as measured by Doppler, is 33.98mmHg. EVENT MARKETING COORDINATOR: Peg Alexander RDCS
--- NOTE | 2020-09-27 21:25 | CT ---
EXAMINATION TYPE: CT ChestAbdPelvis w con DATE OF EXAM: 09/26/2020 COMPARISON: None HISTORY: 45-year-old female prechemotherapy, history of breast cancer, observation for metastases. TECHNIQUE: Contiguous axial scanning of the chest, abdomen, and pelvis performed with IV Contrast, pa tient injected with 100 mL of Isovue 300. Delayed images through the kidneys were obtained. Coronal/s agittal reconstructions performed. CT DLP: 1422.4 mGycm Automated exposure control for dose reduction was used. FINDINGS: CHEST: Partially visualized 4:00 and 6:00 right breast masses. Diffuse right breast skin thickening also not ed. Partially visualized abnormal axillary and right subpectoral lymphadenopathy. Subpectoral lymph n ode measures up to 2.1 x 1.5 cm. One of the visualized lower axillary lymph nodes measures 1.8 x 1.6 cm. Heart normal size without pericardial effusion. Mild pectus excavatum deformity. Ectatic ascending aorta 3.5 cm. Conventional arch vessel branching anatomy. No mediastinal or hilar lymphadenopathy. There is [id number] centrilobular emphysema in the upper lungs. No consolidation or pleural eff usion. A 4 mm left basilar pulmonary nodule, axial image 51 is nonspecific and [facility]. ABDOMEN: No focal liver lesion or biliary ductal dilatation. Portal venous system is patent. Gallbladder, adrenal glands, kidneys, spleen, pancreas appear within normal limits. No mesenteric or retroperitoneal lymphadenopathy. No dilated small bowel, free fluid, free air. Oral contrast has made its way to the distal sigmoid colon. Mild stool burden. No pericolonic inflamm atory change. Normal appendix. PELVIS: Bladder urine distended. Pelvic phleboliths. Uterus anteverted. Both ovaries are visualized. There ar e a couple peripherally enhancing lesions within the left ovary measuring 1.7 and 1.5 cm, probable ru pturing follicles or hemorrhagic cysts. Pelvic ultrasound recommended to further evaluate. No abnorma l fluid collection the pelvis or pelvic lymphadenopathy. BONES: Mild degenerative change of the hips. No osseous destructive process. IMPRESSION: 1. Partially visualized 4:00 and 6:00 biopsy-proven right breast cancers. Known right axillary lympha denopathy. Right subpectoral lymphadenopathy measuring 2.1 x 1.5 cm also demonstrated. Biopsied 12:00 right breast mass corresponded to intraductal papilloma. 2. Diffuse thickening of the inferior right breast skin. Correlate as to etiology such as invasion in to the dermal lymphatics, mastitis, or posttreatment change. 3. A 4 mm left basilar pulmonary nodule. Given the lack of other findings of remote metastatic diseas e, this nodule is nonspecific and follow-up is recommended. 4. A couple peripherally enhancing lesions measuring up to 1.7 cm in the left ovary, probable rupture d follicles or hemorrhagic cysts. Pelvic ultrasound to further evaluate. 5. COPD with [id number] emphysema.
== END | disposition home or self-care (01) ==
LOC: RADCTMAIN 09:40
PROVIDERS: ATTEND Internal Medicine Hematology & Oncology
DX: I08.3 Combined rheumatic disorders of mitral, aortic and tricuspid valves (principal); C50.811 Malignant neoplasm of overlapping sites of right female breast; R59.0 Localized enlarged lymph nodes; R91.1 Solitary pulmonary nodule; J43.9 Emphysema, unspecified; N64.59 Other signs and symptoms in breast; N83.8 Other noninflammatory disorders of ovary, fallopian tube and broad ligament; Z88.6 Allergy status to analgesic agent
CPT/HCPCS: 93306; 71260; 74177; Q9967

== ENCOUNTER → 2020-10-07 | Outpatient (CLI) | payer OTHER ==
--- NOTE | 2020-10-07 15:49 | US ---
EXAMINATION TYPE: US transvaginal DATE OF EXAM: 10/07/2020 COMPARISON: CT September 24, 2020 CLINICAL HISTORY: R19.09 Abd/pel mass Left ovary. TECHNIQUE: Transvaginal (TV). Date of LMP: 09/27/2020 EXAM MEASUREMENTS: Uterus: 9.3 x 4.8 x 5.9 cm Endometrial Stripe: 0.9 cm Right Ovary: 3.1 x 2.3 x 1.8 cm Left Ovary: 3.2 x 1.6 x 3.7 cm 1. Uterus: Anteverted wnl, multiple nabothian cysts. 2. Endometrium: wnl 3. Right Ovary: follicles seen 4. Left Ovary: follicles seen, largest measures 0.9 x 0.8 x 1.2 cm 5. Bilateral Adnexa: wnl 6. Posterior cul-de-sac: no free fluid Several small nabothian cysts in the cervix on initial images. Uterus fairly homogeneous. Endometrial stripe upper limits of normal for a late proliferative phase of menstrual cycle. No free fluid. Both ovaries identified without suspicious adnexal lesion. Small peripheral follicles are present in both ovaries on current study. IMPRESSION: No suspicious adnexal or ovarian lesion on today's study
== END | disposition home or self-care (01) ==
LOC: RADUSWWP 14:55
PROVIDERS: ATTEND Nurse Practitioner Adult Health
DX: N83.8 Other noninflammatory disorders of ovary, fallopian tube and broad ligament (principal); Z88.5 Allergy status to narcotic agent
CPT/HCPCS: 76830

== ENCOUNTER → 2020-10-23 | Outpatient (CLI) | payer OTHER ==
--- NOTE | 2020-10-23 15:59 | MR ---
EXAMINATION TYPE: MR brain wo/w con DATE OF EXAM: 10/23/2020 COMPARISON: NONE HISTORY: Headaches, hx of breast cancer TECHNIQUE: Multiplanar, multisequence images of the brain and brainstem is performed without and with IV contras t, utilizing 7.5 mL intravenous Gadavist . FINDINGS: Diffusion weighted images demonstrate no evidence of a recent infarct or other diffusion ab normality. There is no extra-axial fluid collection or significant white matter signal abnormality. The ventricular system and cisternal spaces are normal in size and appearance. The brain volume is age appropriate. Midline structures demonstrate normal morphology. The craniocervical junction appears within normal limits. Post contrast images demonstrate no abnormal enhancement or suspicious enhancing masses. The dural venous sinuses appear patent. Some distortion at the anterior aspect of bilateral globes is pr esent. Mild to moderate cortical thickening involving the left maxillary sinus otherwise paranasal si nuses are clear.. IMPRESSION: Chronic left maxillary sinus disease otherwise unremarkable study. No enhancing masses to suggest metastatic disease to the brain. No significant white matter changes.
== END | disposition home or self-care (01) ==
LOC: RADMRIMAIN 15:01
PROVIDERS: ATTEND Nurse Practitioner Adult Health
DX: J32.0 Chronic maxillary sinusitis (principal); C50.811 Malignant neoplasm of overlapping sites of right female breast
CPT/HCPCS: 70553; A9585

== ENCOUNTER 2020-10-30 06:28 | Day surgery (SDC) | payer OTHER ==
[2020-10-28 09:33] VITALS: BMI 32.0
[~2020-10-30 06:28] MED LIST: ACETAMINOPHEN TAB 500 MG TAB PO PRN; HEPARIN SODIUM,PORCINE 5,000 UNIT/ML 1 ML VIAL SQ PRN; Pre Op ABX Message 1 EACH MISC MISCELLANE ONE
[2020-10-30 06:59] VITALS: TEMP 97.9
[2020-10-30] MEDS ORDERED: ONDANSETRON 4 MG/2 ML VIAL ONE (07:06)
[2020-10-30] MEDS ORDERED: LIDOCAINE 1% (10MG/ML) FOR IV START INTRADERMA ONE (07:08)
[2020-10-30] MEDS ORDERED: LACTATED RINGERS 1,000 ML IV ONE (07:08)
[2020-10-30] MEDS ORDERED: ONDANSETRON 4 MG/2 ML VIAL IVP ONE (07:08)
[2020-10-30 07:23] LABS: Glucose,Whole Blood 99 mg/dL (75-99)
[2020-10-30] MEDS ORDERED: MIDAZOLAM 2 MG/2 ML VIAL IV ONE (07:38)
[2020-10-30] MEDS ORDERED: MIDAZOLAM 2 MG/2 ML VIAL ONE (07:51)
[2020-10-30] MEDS ORDERED: fentaNYL (PF) 50 MCG/ML 2 ML AMP ONE (07:51)
[2020-10-30] MEDS ORDERED: PROPOFOL 10 MG/ML 20 ML VIAL IV ONE (07:51)
[2020-10-30] MEDS ORDERED: ceFAZolin 1,000 MG VIAL IVPB ONE (08:10)
[2020-10-30] MEDS ORDERED: BUPIVACAINE (PF) 0.25% 30 ML VIAL SQ ONE ×2 (08:19)
--- NOTE | 2020-10-30 08:53 | P.GSHP ---
History of Present Illness H&P Date: 10/30/20 Chief Complaint: History of breast cancer This a 45-year-old female who presents today for Port-A-Cath insertion. Patient has a recent history of breast cancer Past Medical History Past Medical History: Cancer, Osteoarthritis (OA) Additional Past Medical History / Comment(s): Current right breast cancer. First chemo treatment 10/26/20. Recent sinus infection, on antibiotics. Hx cervical cancer 2004. 2 nerves exposed left side around molars. History of Any Multi-Drug Resistant Organisms: None Reported Past Surgical History: Section Additional Past Surgical History / Comment(s): Cervical cancer. Past Anesthesia/Blood Transfusion Reactions: No Reported Reaction Past Psychological History: No Psychological Hx Reported Smoking Status: Current every day smoker Past Alcohol Use History: Occasional Additional Past Alcohol Use History / Comment(s): Has been smoking since 15 yrs old,<1 PPD. Past Drug Use History: Marijuana Additional Drug Use History / Comment(s): Uses Marijuana (CBD/Edibles) daily. Aware no use 24 hrs prior to procedure. - Past Family History Mother Family Medical History: Cancer Additional Family Medical History / Comment(s): Skin cancer. Father Family Medical History: Cancer Additional Family Medical History / Comment(s): Breast cancer. Medications and Allergies Home Medications Medication Instructions Recorded Confirmed Type Diazepam [Valium] 5 mg PO DAILY PRN 08/06/20 10/30/20 History Acetaminophen [Tylenol] 500 mg PO Q4HR PRN 10/28/20 10/30/20 History Amoxic-Pot Clav 875-125Mg 1 tab PO BID 10/28/20 10/30/20 History [Augmentin 875-125] Dexamethasone [Decadron] 4 mg PO BID 10/28/20 10/30/20 History Loratadine [Claritin] 10 mg PO DAILY 10/28/20 10/30/20 History OLANZapine [ZyPREXA] 2.5 mg PO HS 10/28/20 10/30/20 History Omeprazole 40 mg PO DAILY 10/28/20 10/30/20 History Allergies Allergy/AdvReac Type Severity Reaction Status Date / Time morphine AdvReac Confusion Verified 10/30/20 07:02 Surgical - Exam Vital Signs Temp Pulse Resp BP Pulse Ox 97.9 F 72 16 130/78 96 10/30/20 06:56 10/30/20 06:56 10/30/20 06:56 10/30/20 06:56 10/30/20 06:56 - General well developed, well nourished, no distress - Eyes PERRL - ENT normal pinna - Neck no masses - Respiratory normal expansion - Cardiovascular Rhythm: regular - Abdomen Abdomen: soft, non tender Assessment and Plan Assessment: History of right breast cancer. We'll perform Port-A-Cath insertion
--- NOTE | 2020-10-30 08:55 | P.OP ---
Date of Procedure: 10/30/20 Preoperative Diagnosis: Right breast cancer Postoperative Diagnosis: Right breast cancer Procedure(s) Performed: Insertion of right-sided Port-A-Cath Anesthesia: MAC Surgeon: Shiv Gomez Estimated Blood Loss (ml): 10 Pathology: none sent Condition: stable Disposition: PACU Description of Procedure: PROCEDURE: The patient was placed on the operating table in the supine position. She received MAC anesthetic. The [right] chest was prepped and draped in the usual sterile fashion. The skin underneath the right clavicle was anesthetized with 1% Xylocaine and using Seldinger technique, the right subclavian vein was cannulized. The wire was placed through the needle and po sitioned under fluoroscopy. Next, the needle was removed and the port site was anesthetized with 1% Xylocaine. Skin was incised with #15 blade and port pocket was made using blunt and sharp dissection. Following this the catheter was attached to the sport and the port was flushed. The port was positioned into the pocket site and was secured with 3-0 Vicryl suture. The catheter was then brought out through the wire site and then the dilator sheath was placed over the wire and the dilator and the wire were removed. The catheter was placed through the sheath and the sheath was removed. The port was flushed with hep- lock solution. Skin was closed with interrupted 3-0 Vicryl sutures. Steri- Strips were applied. The patient tolerated the procedure well. The patient was sent to recovery room for chest x-ray after the procedure.
[2020-10-30] MEDS ORDERED: HYDROcodone/APAP 5-325MG 1 EACH TAB ONE (09:41)
[2020-10-30] MEDS ORDERED: HYDROcodone/APAP 5-325MG 1 EACH TAB PO ONE (09:42)
[2020-10-30 09:47] VITALS: BP 110/77; PULSE 62; RESP 18
--- NOTE | 2020-10-30 09:57 | XR ---
EXAMINATION TYPE: XR chest 1V portable DATE OF EXAM: 10/30/2020 COMPARISON: Chest x-ray dated 08/01/2019 HISTORY: Insertion Port-A-Cath TECHNIQUE: Single frontal view of the chest is obtained. FINDINGS: There is been interval placement of a Port-A-Cath in the right pectoral region via subclavi an approach, distal tip of the catheter overlying the superior vena cava. There is no focal air space opacity, pleural effusion, or pneumothorax seen. The cardiac silhouette size is within normal limit s. The osseous structures are intact. IMPRESSION: Comment location status post Port-A-Cath placement.
--- NOTE | 2020-10-30 10:42 | FL ---
Fluoroscopy HISTORY: Pain 16 seconds fluoroscopy time supplied to the referring clinician. 1 intraoperative C-arm images docum ent the procedure. See dictated report from anesthesia.
== END 2020-10-30 10:29 | disposition home or self-care (01) ==
LOC: OR 06:28
PROVIDERS: ATTEND Surgery
DX: C50.911 Malignant neoplasm of unspecified site of right female breast (principal); M19.90 Unspecified osteoarthritis, unspecified site; J32.9 Chronic sinusitis, unspecified; Z85.41 Personal history of malignant neoplasm of cervix uteri; F17.210 Nicotine dependence, cigarettes, uncomplicated; Z80.8 Family history of malignant neoplasm of other organs or systems; Z79.899 Other long term (current) drug therapy; Z88.5 Allergy status to narcotic agent; Z79.52 Long term (current) use of systemic steroids
CPT/HCPCS: 81025; 77001; 71045; 36561; C1788; J2250; J1644; J2405; J0690; J3010; J1642; J2704

== ENCOUNTER 2021-03-04 05:07 | Observation (INO) | payer OTHER ==
[2021-03-04] MEDS ORDERED: ACETAMINOPHEN IV (For NPO) 1,000 MG in EMPTY BAG 1 BAG IVPB STA (05:33)
[2021-03-04] MEDS ORDERED: SODIUM CHLORIDE 0.9% 1,000 ML IV STA ×3 (05:33→06:19)
[2021-03-04] MEDS ORDERED: IPRATROPIUM-ALBUTEROL 3 ML NEB INHALATION STA (05:33)
[2021-03-04] MEDS ORDERED: KETOROLAC 15 MG/ML 1 ML VIAL IVP STA (05:33)
[2021-03-04] MEDS ORDERED: HYDROmorphone 1 MG/ML 1 ML SYRINGE IVP PRN (06:19)
[2021-03-04] MEDS ORDERED: HYDROmorphone 1 MG/ML 1 ML SYRINGE IVP STA (06:19)
[2021-03-04] MEDS ORDERED: SODIUM CHLORIDE 0.9% 500 ML 500 ML IV STA (06:19)
--- NOTE | 2021-03-04 06:22 | ED ---
Fever HPI - General Chief Complaint: Shortness of Breath Stated Complaint: OLGA Time Seen by Provider: 03/04/21 05:17 Source: patient, family, RN notes reviewed, old records reviewed Mode of arrival: ambulatory Limitations: no limitations - History of Present Illness Initial Comments: This is a 45-year-old female who is oncology patient coming in for fever. Patient's and fever and some flank pain has chest pain. Does admit to cough and weakness as of late. Patient is going to treatment currently. No recent travel history otherwise, no known sick contacts fever started today weakness, appetite is been diminished at eating or drinking appropriately per daughter MD Complaint: fever, malaise, weakness -: days(s) Temperature Source: subjective Context: on chemotherapy Associated Symptoms: chills, rigors, myalgias, cough, nausea Treatments Prior to Arrival: none - Related Data Home Medications Medication Instructions Recorded Confirmed Cpm/PE/Dm/Acetaminophen/Guaifn 2 tab PO Q8H PRN 03/04/21 03/04/21 [Tylenol Cold-Flu Day-Nt Caplet] Previous Rx's Medication Instructions Recorded Levofloxacin [Levaquin] 750 mg PO DAILY 7 Days #1 tab 03/04/21 Allergies Allergy/AdvReac Type Severity Reaction Status Date / Time morphine AdvReac Confusion Verified 03/04/21 05:20 Review of Systems ROS Statement: Those systems with pertinent positive or pertinent negative responses have been documented in the HPI. ROS Other: All systems not noted in ROS Statement are negative. Past Medical History Past Medical History: Cancer, Osteoarthritis (OA) Additional Past Medical History / Comment(s): Hx cervical cancer 2005. 2 nerves exposed left sidearound molars. hormone CA "HR2" History of Any Multi-Drug Resistant Organisms: None Reported Past Surgical History: Section Additional Past Surgical History / Comment(s): Cervical cancer. Past Anesthesia/Blood Transfusion Reactions: No Reported Reaction Past Psychological History: No Psychological Hx Reported Smoking Status: Current every day smoker Past Alcohol Use History: Occasional Past Drug Use History: Marijuana - Past Family History Mother Family Medical History: Cancer Additional Family Medical History / Comment(s): Skin cancer. Father Family Medical History: Cancer Additional Family Medical History / Comment(s): Breast cancer. General Exam Limitations: no limitations General appearance: anxious Head exam: Present: atraumatic, normocephalic, normal inspection Eye exam: Present: normal appearance, PERRL, EOMI. Absent: scleral icterus, conjunctival injection, periorbital swelling ENT exam: Present: normal exam, mucous membranes dry Neck exam: Present: normal inspection. Absent: tenderness, meningismus, lymphadenopathy Respiratory exam: Present: normal lung sounds bilaterally. Absent: respiratory distress, wheezes, rales, rhonchi, stridor Cardiovascular Exam: Present: normal rhythm, tachycardia, normal heart sounds. Absent: systolic murmur, diastolic murmur, rubs, gallop, clicks GI/Abdominal exam: Present: soft, normal bowel sounds. Absent: distended, tenderness, guarding, rebound, rigid Extremities exam: Present: normal inspection, full ROM, normal capillary refill. Absent: tenderness, pedal edema, joint swelling, calf tenderness Back exam: Present: normal inspection Neurological exam: Present: alert, oriented X3, CN II-XII intact Psychiatric exam: Present: normal affect, normal mood Skin exam: Present: warm, dry, intact, normal color. Absent: rash Course Vital Signs 03/04/21 03/04/21 03/04/21 05:15 08:10 11:00 Temperature 100.6 F H 99.8 F H Pulse Rate 120 H 82 79 Respiratory 28 H 18 18 Rate Blood Pressure 109/66 103/71 102/67 O2 Sat by Pulse 97 96 96 Oximetry 03/04/21 19:13 Temperature 99 F Pulse Rate 82 Respiratory 18 Rate Blood Pressure 113/82 O2 Sat by Pulse 98 Oximetry - Reevaluation(s) Reevaluation #1: Medical record is reviewed Patient symptoms improved here in the ER Patient informed results and questions answered Medical Decision Making - Medical Decision Making 45 female DF for fever with pneumonia. Patient be admitted for IV antibiotics and supportive care. - Lab Data Result diagrams: 03/04/21 05:41 03/04/21 05:41 Lab Results 03/04/21 03/04/21 03/04/21 Range/Units 05:41 05:41 05:41 WBC 4.5 (3.8-10.6) k/uL RBC 3.99 (3.80-5.40) m/uL Hgb 12.2 (11.4-16.0) gm/dL Hct 35.3 (34.0-46.0) % MCV 88.3 (80.0-100.0) fL MCH 30.6 (25.0-35.0) pg MCHC 34.6 (31.0-37.0) g/dL RDW 15.5 (11.5-15.5) % Plt Count 117 L (150-450) k/uL MPV 8.3 Neutrophils % 63 % Lymphocytes % 14 % Monocytes % 20 % Eosinophils % 1 % Basophils % 1 % Neutrophils # 2.8 (1.3-7.7) k/uL Lymphocytes # 0.6 L (1.0-4.8) k/uL Monocytes # 0.9 (0-1.0) k/uL Eosinophils # 0.0 (0-0.7) k/uL Basophils # 0.0 (0-0.2) k/uL PT 10.9 (9.0-12.0) sec INR 1.0 (<1.2) APTT 22.6 (22.0-30.0) sec Sodium 135 L (137-145) mmol/L Potassium 3.6 (3.5-5.1) mmol/L Chloride 106 (98-107) mmol/L Carbon Dioxide 19 L (22-30) mmol/L Anion Gap 10 mmol/L BUN 11 (7-17) mg/dL Creatinine 0.80 (0.52-1.04) mg/dL Est GFR (CKD-EPI)AfAm >90 (>60 ml/min/1.73 sqM) Est GFR (CKD-EPI)NonAf 90 (>60 ml/min/1.73 sqM) Glucose 91 (74-99) mg/dL Plasma Lactic Acid Mikal (0.7-2.0) mmol/L Calcium 8.8 (8.4-10.2) mg/dL Magnesium 1.6 (1.6-2.3) mg/dL Total Bilirubin 0.3 (0.2-1.3) mg/dL AST 22 (14-36) U/L ALT 22 (4-34) U/L Alkaline Phosphatase 85 (38-126) U/L Creatine Kinase 33 (30-135) U/L Troponin I (0.000-0.034) ng/mL NT-Pro-B Natriuret Pep pg/mL Total Protein 6.5 (6.3-8.2) g/dL Albumin 3.8 (3.5-5.0) g/dL 03/04/21 03/04/21 03/04/21 Range/Units 05:41 05:41 05:41 WBC (3.8-10.6) k/uL RBC (3.80-5.40) m/uL Hgb (11.4-16.0) gm/dL Hct (34.0-46.0) % MCV (80.0-100.0) fL MCH (25.0-35.0) pg MCHC (31.0-37.0) g/dL RDW (11.5-15.5) % Plt Count (150-450) k/uL MPV Neutrophils % % Lymphocytes % % Monocytes % % Eosinophils % % Basophils % % Neutrophils # (1.3-7.7) k/uL Lymphocytes # (1.0-4.8) k/uL Monocytes # (0-1.0) k/uL Eosinophils # (0-0.7) k/uL Basophils # (0-0.2) k/uL PT (9.0-12.0) sec INR (<1.2) APTT (22.0-30.0) sec Sodium (137-145) mmol/L Potassium (3.5-5.1) mmol/L Chloride (98-107) mmol/L Carbon Dioxide (22-30) mmol/L Anion Gap mmol/L BUN (7-17) mg/dL Creatinine (0.52-1.04) mg/dL Est GFR (CKD-EPI)AfAm (>60 ml/min/1.73 sqM) Est GFR (CKD-EPI)NonAf (>60 ml/min/1.73 sqM) Glucose (74-99) mg/dL Plasma Lactic Acid Mikal 1.2 (0.7-2.0) mmol/L Calcium (8.4-10.2) mg/dL Magnesium (1.6-2.3) mg/dL Total Bilirubin (0.2-1.3) mg/dL AST (14-36) U/L ALT (4-34) U/L Alkaline Phosphatase (38-126) U/L Creatine Kinase (30-135) U/L Troponin I <0.012 (0.000-0.034) ng/mL NT-Pro-B Natriuret Pep 42 pg/mL Total Protein (6.3-8.2) g/dL Albumin (3.5-5.0) g/dL - EKG Data -: EKG Interpreted by Me (EKG shows normal sinus rhythm of 94 VT 138 QRS 82 QTC 4:30) - Radiology Data Radiology results: report reviewed (Chest x-rays positive for pneumonia), image reviewed Disposition Clinical Impression: Fever, Pneumonia Disposition: Left Against Medical Advice Condition: Fair Is patient prescribed a controlled substance at d/c from ED?: No
--- NOTE | 2021-03-04 07:02 | XR ---
EXAM: XR Chest, 2 Views CLINICAL HISTORY: ITS.REASON XR Reason: difficulty breathing TECHNIQUE: Frontal and lateral views of the chest. COMPARISON: 10/30/20 FINDINGS: Lungs: Ill-defined opacity in the left perihilar region suspicious for developing pneumonia. Follow-up to clearing recommended to exclude underlying lesions/abnormality. No significant effusion. Pleural space: Unremarkable. No pneumothorax. Heart: Unremarkable. No cardiomegaly. Mediastinum: Unremarkable. Bones/joints: Unremarkable. Tubes, lines and devices: Right-sided Port-A-Cath, unchanged in position. IMPRESSION: 1. Developing infiltrate in the left perihilar region. 2. Follow-up to clearing recommended. 3. No pleural effusion
[2021-03-04 07:16] LABS: Basophils % (A) 1 %; Eosinophils % (A) 1 %; HCT 35.3 % (34.0-46.0); HGB 12.2 gm/dL (11.4-16.0); Lymphocytes # (A) 0.6 k/uL (1.0-4.8); Lymphocytes % (A) 14 %; MCH 30.6 pg (25.0-35.0); MCHC 34.6 g/dL (31.0-37.0); MCV 88.3 fL (80.0-100.0); Mean Platelet Volume 8.3; Monocytes # (A) 0.9 k/uL (0-1.0); Monocytes % (A) 20 %; Neutrophils # (A) 2.8 k/uL (1.3-7.7); Neutrophils % (A) 63 %; Platelet Count 117 k/uL (150-450); RBC 3.99 m/uL (3.80-5.40); RDW 15.5 % (11.5-15.5); WBC 4.5 k/uL (3.8-10.6)
[2021-03-04] MEDS ORDERED: AZITHROMYCIN 500 MG in SODIUM CHLORIDE 0.9% 250 ML IVPB STA (07:24)
[2021-03-04] MEDS ORDERED: IPRATROPIUM-ALBUTEROL 3 ML NEB INHALATION PRN (07:24)
[2021-03-04] MEDS ORDERED: PNEUMONIA PROTOCOL UTILIZED 1 EACH MISC PO PRN (07:24)
[2021-03-04] MEDS ORDERED: HYDROmorphone 0.5 MG/0.5 ML SYRINGE IVP PRN (07:30)
[2021-03-04 07:34] LABS: Partial Thromboplastin Time 22.6 sec (22.0-30.0); Prothrombin Time 10.9 sec (9.0-12.0)
[2021-03-04 07:44] LABS: ALT 22 U/L (4-34); AST 22 U/L (14-36); African American GFR (CKD) >90 (>60 ml/min/1.73 sqM); Albumin 3.8 g/dL (3.5-5.0); Alkaline Phosphatase 85 U/L (38-126); Anion Gap 10 mmol/L; Blood Urea Nitrogen 11 mg/dL (7-17); Calcium 8.8 mg/dL (8.4-10.2); Carbon Dioxide 19 mmol/L (22-30); Chloride 106 mmol/L (98-107); Creatine Kinase 33 U/L (30-135); Glucose 91 mg/dL (74-99); Magnesium 1.6 mg/dL (1.6-2.3); Non-African American GFR(CKD) 90 (>60 ml/min/1.73 sqM); Potassium 3.6 mmol/L (3.5-5.1); Sodium 135 mmol/L (137-145); Total Bilirubin 0.3 mg/dL (0.2-1.3); Total Protein 6.5 g/dL (6.3-8.2)
[2021-03-04 08:14] VITALS: RESP 18
--- NOTE | 2021-03-04 11:16 | P.CONS ---
History of Present Illness - Reason for Consult Consult date: 03/04/21 Fever on chemo Requesting physician: Jag Palomo - Chief Complaint Productive Cough and SOB and Fever - History of Present Illness Ms Rodriguez is a pleasant, otherwise healthy premenopausal white female, but first noted a lump in the central portion of her left breast, in mid to late 2017. The patient states that this was asymptomatic and did not change due to which she did not seek attention for it. Starting in late spring she started noticing some discomfort with faster fatigue at work with her right upper extremity (she works as a entry clerk) as well as some vague discomfort in the right breast. The patient also reported some increase in fatigue generally. According to her the symptoms are slowly progressive. She felt that there were "some changes" in the right breast due to which she sought attention with her PCP. Patient had a mammogram on 07/01/20 and was found to have a 3 cm nodule in the right breast at 12:00 and a 2.5 cm nodule at 7:00 on nurse exam. Mammogram revealed a 2 cm mass in the lower inner quadrant, as well as clustered nakia cification in the central lower quadrant consistent with speculated mass. There appeared to be an enlarged right axillary nodes. There was a 2.5 cm mass in the right upper central breast. She had an ultrasound done on the same day, that showed a 2.1 x 1.9 x 1.4 cm irregular hypoechoic lesion at 4:00, 1.9 x 1.7 x 2.2 cm irregular hypoechoic lesion at 6:00, 1.5 x 1 x 1.3 cm over cystic lesion at 1:00, and multiple enlarged nodes in the axilla, largest measuring 1.9 x 1.4 cm. The patient underwent ultrasound-guided core biopsies on 07/27/20 of. the 12:00, 4:00, and 6:00 lesions as well as right axillary node. 12:00 lesion showed intraductal papilloma and proliferative fibrocystic changes. The 4:00 and 6:00 biopsies were positive for invasive ductal carcinoma, grade 2 and grade 3 respectively, with intermediate grade and high- grade DCIS respectively. 4:00 lesion was ER positive, 31-40%, TX positive, 4150%, and HER-2 positive with IHC 3+. The 6:00 lesion was ER positive, 71-80%, TX +21-30%, and also HER-2 +, 3+. patient's case was discussed in the [facility]. She also gave a history of male breast cancer in her father and paternal grandfather. There was a history of breast cancer in her maternal grandmother, and maternal grandmother's sister. Due to the above gene testing was felt to be appropriate. 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 The patient had additional staging with CT of the chest abdomen and pelvis (PET scan was denied by her insurance). This did not show any evidence of met astatic disease. Nonspecific 4 mm right lung nodule, as well as small ovarian lesion suggestive of ruptured follicles were seen. Echocardiogram was normal. She she started chemotherapy with [facility] on 10/26/20, as she delayed her port placement due to scheduling issues and transportation problems, and is status post 2 cycles. Telemed 11/12/20: She denied any fevers/chills/nausea/vomiting. she states that she had loose watery diarrhea, lasting about 3-4 days, starting about 4 days after c hemotherapy. She will Imodium only sparingly. She is starting to lose her hair. She has noted some fatigue, but is continuing to work part-time. She has not noticed any new lumps or masses. She denies any change in respiratory status, new bone pain or abdominal pain. Review of systems otherwise as per HPI and negative out of 10 As above The pt denied any f/c/n/v. SHe had tolerable, transient fatigue. Diarrhea was quite mild, with use of Imodium 1-2 /d x 2-3 days. Her menstrual cycle was prolonged and heavy. her appetite is fair, despite some loss of taste. her ROS is otherwise as per HPI and negative out of 10 She has not remained adherent to follow-up visits, she is suppose to be monitored every 1-2 weeks and has "NO SHOWED" since 2020. ALthough continues to make chemotherapy appointments. Review of Systems All systems: negative Constitutional: Reports as per HPI Past Medical History Past Medical History: Cancer, Osteoarthritis (OA) Additional Past Medical History / Comment(s): Hx cervical cancer 2004. 2 nerves exposed left sidearound molars. hormone CA "HR2" History of Any Multi-Drug Resistant Organisms: None Reported Past Surgical History: Section Additional Past Surgical History / Comment(s): Cervical cancer. Past Anesthesia/Blood Transfusion Reactions: No Reported Reaction Past Psychological History: No Psychological Hx Reported Smoking Status: Current every day smoker Past Alcohol Use History: Occasional Past Drug Use History: Marijuana - Past Family History Mother Family Medical History: Cancer Additional Family Medical History / Comment(s): Skin cancer. Father Family Medical History: Cancer Additional Family Medical History / Comment(s): Breast cancer. Medications and Allergies Home Medications Medication Instructions Recorded Confirmed Type Cpm/PE/Dm/Acetaminophen/Guaifn 2 tab PO Q8H PRN 03/04/21 03/04/21 History [Tylenol Cold-Flu Day-Nt Caplet] Levofloxacin [Levaquin] 750 mg PO DAILY 7 Days #1 tab 03/04/21 Rx Allergies Allergy/AdvReac Type Severity Reaction Status Date / Time morphine AdvReac Confusion Verified 03/04/21 05:20 Physical Exam Vitals: Vital Signs Temp Pulse Resp BP Pulse Ox 03/04/21 08:10 99.8 F H 82 18 103/71 96 03/04/21 05:15 100.6 F H 120 H 28 H 109/66 97 Intake and Output 03/03/21 03/04/21 03/04/21 22:59 06:59 14:59 Other: Weight 77.111 kg - Constitutional General appearance: cooperative, no acute distress - EENT Eyes: EOMI, PERRLA ENT: NA/AT, normal oropharynx - Neck Neck: normal ROM - Respiratory Respiratory: left: diminished, wheezing - Cardiovascular Rhythm: regular Heart sounds: normal: S1, S2 - Gastrointestinal General gastrointestinal: normal bowel sounds, soft - Integumentary Integumentary: normal - Neurologic Neurologic: CNII-XII intact - Musculoskeletal Musculoskeletal: generalized weakness, strength equal bilaterally - Psychiatric Psychiatric: A&O x's 3, appropriate affect, intact judgment & insight Results CBC & Chem 7: 03/04/21 05:41 03/04/21 05:41 Labs: Abnormal Lab Results - Last 24 Hours (Table) 03/04/21 03/04/21 Range/Units 05:41 05:41 Plt Count 117 L (150-450) k/uL Lymphocytes # 0.6 L (1.0-4.8) k/uL Sodium 135 L (137-145) mmol/L Carbon Dioxide 19 L (22-30) mmol/L Chest x-ray: report reviewed CT scan - chest: report reviewed Assessment and Plan (1) Lung mass Current Visit: Yes Status: Acute Code(s): R91.8 - OTHER NONSPECIFIC ABNORMAL FINDING OF LUNG FIELD SNOMED Code(s): 818868209 (2) Breast cancer Current Visit: Yes Status: Acute Code(s): C50.919 - MALIGNANT NEOPLASM OF UNSP SITE OF UNSPECIFIED FEMALE BREAST SNOMED Code(s): 640752977 (3) HER2-positive carcinoma of breast Current Visit: Yes Status: Acute Code(s): C50.919 - MALIGNANT NEOPLASM OF UNSP SITE OF UNSPECIFIED FEMALE BREAST SNOMED Code(s): 336113561 Plan: COverage for community acquired pneumonia Infectious work-up CTA to rule out PE Although CTA reveals a new finding (was not mentioned in September 2020 imaging) 3.9x3.0 posterior JUICE, Pulmnary team has seen and evaluated patient and plan for repeat imaging in 3-4 weeks. - With her recent completion of Chemotherapy and HER2 treatment (still has completion of one year to complete of perjeta and herceptin) we can order PET CT as outpatient to evaluate for FDG avidity in lung mass, await 3 weeks for resolution of infectious component. SHe also need echocardiogram as she has not been compliant with follow-up practitioner visits. Physician Attest: I shonna completed the full history and physical and agree with above dictation, dictated as a scribe.
[2021-03-04 11:59] LABS: Appearance,Urine Clear (Clear); Bilirubin,Urine Negative (Negative); Blood,Urine Trace (Negative); Color,Urine Yellow; Glucose,Urine (UA) Negative (Negative); Ketones,Urine Negative (Negative); Leukocyte Esterase,Urine Negative (Negative); Mucus,Urine Many /hpf; Nitrite,Urine Negative (Negative); Protein,Urine 1+ (Negative); RBC,Urine 7 /hpf (0-5); Squamous Epithelial Cell,Urine 5 /hpf (0-4); Urobilinogen,Urine <2.0 mg/dL (<2.0); WBC,Urine 4 /hpf (0-5)
[2021-03-04 12:02] LABS: Specific Gravity,Urine >1.050 (1.001-1.035)
--- NOTE | 2021-03-04 12:42 | CT ---
CT CHEST FOR PULMONARY EMBOLISM. EXAMINATION TYPE: CT angio chest DATE OF EXAM: 03/04/2021 INDICATION: r/o PE CT DLP: 348.4 mGycm, Automated exposure control for dose reduction was used. CONTRAST: Patient injected with 91ml mL of Isovue 370. COMPARISON: 09/24/2020 TECHNIQUE: CT of the chest is performed on a spiral scan at 2 mm thick sections. Study is performed with intravenous contrast timed for evaluation for pulmonary embolism. Contrast timing however subop timal causing some limitation. This will limit additional portions of the evaluation. 3-D MIP images reconstructed by the technologist are reviewed on the computer in the coronal and sagittal planes. FINDINGS: No persistent filling defects are evident to suggest an acute pulmonary embolism. No mediastinal or hilar adenopathy enlarged by CT criteria is evident. Multiple scattered shotty lymp h nodes within the mediastinum The ascending aorta diameter at the level of the main pulmonary artery is 3.5 cm. The main pulmonary artery diameter at the bifurcation is 3.3 cm. There is a 3.9 x 3.0 cm mass with peripheral fibrosis at the posterior left upper lobe. This is an in terval change. Pneumonia could be considered. Mass should be considered. There is a stable appearing 0.5 cm nodule posterior left lung base. This is within measurement error. Series [address] section through the upper abdomen are unremarkable. IMPRESSIONS: 1. No acute pulmonary embolism. 2. 3.9 x 3.0 cm mass posterior left upper lung field, new from September 2020. Pneumonia and mass shou ld be considered. Additional workup is recommended. 3. Stable left base nodule
[2021-03-04] MEDS ORDERED: NALOXONE 0.4 MG/ML 1 ML VIAL IV PRN (12:52)
[2021-03-04] MEDS ORDERED: HYDROcodone/APAP 5-325MG 1 EACH TAB PO PRN (12:53)
[2021-03-04] MEDS ORDERED: ONDANSETRON 4 MG/2 ML VIAL IVP PRN (12:53)
[2021-03-04] MEDS ORDERED: bisacodyL 5 MG TABLET.DR PO PRN (12:53)
[2021-03-04] MEDS ORDERED: MELATONIN 3 MG TABLET PO PRN (12:53)
--- NOTE | 2021-03-04 13:26 | P.HPIM ---
History of Present Illness H&P Date: 03/04/21 (delayed charting seen at 1045) Chief Complaint: left rib pain Patient is a 45-year-old female with HER-2 positive breast cancer and completed her last round of chemotherapy 2 weeks ago, prior cervical cancer in 2004, and tobacco abuse who presented to the emergency department due to acute onset left chest pain. In the ER she underwent an extensive evaluation. On arrival she was tachycardic at 100.6 and a pulse of 128. Chest x-ray showed possible developing infiltrate in the left perihilar region. She was started on Rocephin and Zithromax. She was given IV fluids. Consultation was placed for oncology. Patient seen and examined at bedside. She reports that she woke suddenly with left-sided rib pain this morning that felt like burning. She initially thought she had broken a rib. She denies any change in shortness of breath, coughing she is not had any fevers but has been having some night sweats. She denies any recent nausea, vomiting, diarrhea. She recently finished her last round of chemotherapy approximately 2 weeks ago, she reports that she did not get her GM- CSF stimulator after that round of chemo. She states that she is due to be having her prophylactic bilateral mastectomy and hysterectomy soon. Pertinent positives and negatives as discussed in HPI, a complete review of systems was performed and all other systems are negative. General: non toxic, no distress, appears at stated age Derm: warm, dry Head: atraumatic, normocephalic, symmetric Eyes: EOMI, no lid lag, anicteric sclera, pupils equal round reactive to light ENT: Nose and ears atraumatic, no thrush, no pharyngeal erythema Neck: No thyromegaly, no cervical lymphadenopathy, trachea midline, supple Mouth: no lip lesion, mucus membranes moist Cardiovascular: S1S2 reg, no murmur, positive posterior tibial pulse bilateral, no edema, capillary refill less than 2 seconds Lungs: Decreased breath sounds bilateral, no ronchi, no rales, no wheeze, no accessory muscle use Abdominal: soft, nontender to palpation, no guarding, no appreciable organomegaly, normal bowel sounds Ext: no gross muscle atrophy, muscle strength muscle strength 5 out of 5 in all 4 extremities, no contractures Neuro: CN II-XI grossly intact, light touch intact all 4 extremities, finger to nose within normal limits, Psych: Alert, oriented, appropriate affect Left-sided rib pain with possible pneumonia -Continue with Rocephin and Zithromax -Check CT of the chest -IV fluids -Follow CBC Breast cancer -Oncology recs Tobacco abuse -Cessation -Nicotine replacement The patient is placed in observation with an anticipated less than 2 midnight stay for evaluation of pnuemonia. CODE STATUS:full DVT prophylaxis: lovenox Discussed with: patient, nursing Anticipated discharge date: 1-[address]: home A total of 55 minutes was spent on the care of this complex patient more than 50% of the time was spent in counseling and care coordination. Past Medical History Past Medical History: Cancer, Osteoarthritis (OA) Additional Past Medical History / Comment(s): Hx cervical cancer 2004. 2 nerves exposed left sidearound molars. hormone CA "HR2" History of Any Multi-Drug Resistant Organisms: None Reported Past Surgical History: Section Additional Past Surgical History / Comment(s): Cervical cancer. Past Anesthesia/Blood Transfusion Reactions: No Reported Reaction Past Psychological History: No Psychological Hx Reported Smoking Status: Current every day smoker Past Alcohol Use History: Occasional Past Drug Use History: Marijuana - Past Family History Mother Family Medical History: Cancer Additional Family Medical History / Comment(s): Skin cancer. Father Family Medical History: Cancer Additional Family Medical History / Comment(s): Breast cancer. Medications and Allergies Home Medications Medication Instructions Recorded Confirmed Type Cpm/PE/Dm/Acetaminophen/Guaifn 2 tab PO Q8H PRN 03/04/21 03/04/21 History [Tylenol Cold-Flu Day-Nt Caplet] Allergies Allergy/AdvReac Type Severity Reaction Status Date / Time morphine AdvReac Confusion Verified 03/04/21 05:20 Physical Exam Osteopathic Statement: *. No significant issues noted on an osteopathic structural exam other than those noted in the History and Physical/Consult. Vitals: Vital Signs Temp Pulse Resp BP Pulse Ox 03/04/21 11:00 79 18 102/67 96 03/04/21 08:10 99.8 F H 82 18 103/71 96 03/04/21 05:15 100.6 F H 120 H 28 H 109/66 97 Intake and Output 03/03/21 03/04/21 03/04/21 22:59 06:59 14:59 Other: Weight 77.111 kg Results CBC & Chem 7: 03/04/21 05:41 03/04/21 05:41 Labs: Abnormal Lab Results - Last 24 Hours (Table) 03/04/21 03/04/21 03/04/21 Range/Units 05:41 05:41 11:00 Plt Count 117 L (150-450) k/uL Lymphocytes # 0.6 L (1.0-4.8) k/uL Sodium 135 L (137-145) mmol/L Carbon Dioxide 19 L (22-30) mmol/L Ur Specific [place] >1.050 H (1.001-1.035) Urine Protein 1+ H (Negative) Urine Blood Trace H (Negative) Urine RBC 7 H (0-5) /hpf Ur Squamous Epith Cells 5 H (0-4) /hpf Urine Mucus Many H (None) /hpf
--- NOTE | 2021-03-04 16:20 | P.CNPUL ---
History of Present Illness Consult date: 03/04/21 Requesting physician: Will Box Reason for consult: dyspnea, pneumonia, abnormal CXR/CT Chief complaint: Cough, fever History of present illness: 45-year-old white female patient with history of breast cancer in the right breast that was diagnosed in July 2020, recently completed her chemotherapy 2 weeks ago, and patient is supposed to undergo double mastectomy and hysterectomy in the near future. She also has a history of cervical cancer in 2004. Patient is a current smoker. Patient came into the emergency department on 03/04/2020 1 in the morning for evaluation of acute onset of left sided chest pain. She was febrile with a temp of 100.6F, and tachycardic with a rate of 128 BPM, chest x- ray showed possible developing infiltrate in the left perihilar region, and patient was started on Rocephin and azithromycin for abiotic coverage. Patient denies any cough, she denies any fevers at home, but does report some night sweats. Denies any nausea vomiting or diarrhea. She tested negative for COVID- 19. Her lab work showed a white blood cell count of 4.5, hemoglobin of 12.2, lymphocyte count of 0.6, INR of 1, CO2 was 19, the rest of her BMP was unremarkable, lactic acid was 1.2, troponin was less than 0.012, LFTs were within normal limits, urinalysis showed 1+ protein, but no clear evidence of urinary tract infection. She was given some IV fluids in the emergency depar tment, breathing treatments, antibiotics, and Dilaudid for pain. She is feeling much better this afternoon during our evaluation, she is on room air, pulse ox is 96%, she did have a CTA chest which showed no evidence of acute pulmonary embolism, and 3.9 x 3.0 cm mass like density in the posterior left upper lung field, which is new compared September 2020. And there is a stable left base nodule. Review of Systems All systems: negative Constitutional: Denies chills, Denies fever Eyes: denies blurred vision, denies pain Ears, nose, mouth and throat: Denies headache, Denies sore throat Cardiovascular: Reports chest pain, Denies shortness of breath Respiratory: Denies cough Gastrointestinal: Denies abdominal pain, Denies diarrhea, Denies nausea, Denies vomiting Genitourinary: Denies dysuria, Denies hematuria Musculoskeletal: Denies myalgias Integumentary: Denies pruritus, Denies rash Neurological: Denies numbness, Denies weakness Psychiatric: Denies anxiety, Denies depression Endocrine: Denies fatigue, Denies weight change Past Medical History Past Medical History: Cancer, Osteoarthritis (OA) Additional Past Medical History / Comment(s): Hx cervical cancer 2004. 2 nerves exposed left sidearound molars. hormone CA "HR2" History of Any Multi-Drug Resistant Organisms: None Reported Past Surgical History: Section Additional Past Surgical History / Comment(s): Cervical cancer. Past Anesthesia/Blood Transfusion Reactions: No Reported Reaction Past Psychological History: No Psychological Hx Reported Smoking Status: Current every day smoker Past Alcohol Use History: Occasional Past Drug Use History: Marijuana - Past Family History Mother Family Medical History: Cancer Additional Family Medical History / Comment(s): Skin cancer. Father Family Medical History: Cancer Additional Family Medical History / Comment(s): Breast cancer. Medications and Allergies Home Medications Medication Instructions Recorded Confirmed Type Cpm/PE/Dm/Acetaminophen/Guaifn 2 tab PO Q8H PRN 03/04/21 03/04/21 History [Tylenol Cold-Flu Day-Nt Caplet] Allergies Allergy/AdvReac Type Severity Reaction Status Date / Time morphine AdvReac Confusion Verified 03/04/21 05:20 Physical Exam Vitals: Vital Signs Temp Pulse Resp BP Pulse Ox 03/04/21 11:00 79 18 102/67 96 03/04/21 08:10 99.8 F H 82 18 103/71 96 03/04/21 05:15 100.6 F H 120 H 28 H 109/66 97 Intake and Output 03/04/21 03/04/21 03/04/21 06:59 14:59 22:59 Other: Weight 77.111 kg GENERAL EXAM: Alert, very pleasant, 45-year-old white female, on room air with a pulse ox of 96% comfortable in no apparent distress. HEAD: Normocephalic/atraumatic. EYES: Normal reaction of pupils, equal size. Conjunctiva pink, sclera white. NOSE: Clear with pink turbinates. THROAT: No erythema or exudates. NECK: No masses, no JVD, no thyroid enlargement, no adenopathy. CHEST: No chest wall deformity. Symmetrical expansion. LUNGS: Equal air entry with no crackles, wheeze, rhonchi or dullness. CVS: Regular rate and rhythm, normal S1 and S2, no gallops, no murmurs, no rubs ABDOMEN: Soft, nontender. No hepatosplenomegaly, normal bowel sounds, no guarding or rigidity. EXTREMITIES: No clubbing, no edema, no cyanosis, 2+ pulses and upper and lower extremities. MUSCULOSKELETAL: Muscle strength and tone normal. SPINE: No scoliosis or deformity SKIN: No rashes CENTRAL NERVOUS SYSTEM: Alert and oriented -3. No focal deficits, tone is normal in all 4 extremities. PSYCHIATRIC: Alert and oriented -3. Appropriate affect. Intact judgment and insight. Results - Laboratory Findings CBC and BMP: 03/04/21 05:41 03/04/21 05:41 PT/INR, D-dimer PT 10.9 sec (9.0-12.0) 03/04/21 05:41 INR 1.0 (<1.2) 03/04/21 05:41 Abnormal lab findings: Abnormal Labs 03/04/21 03/04/21 03/04/21 05:41 05:41 11:00 Plt Count 117 L Lymphocytes # 0.6 L Sodium 135 L Carbon Dioxide 19 L Ur Specific [place] >1.050 H Urine Protein 1+ H Urine Blood Trace H Urine RBC 7 H Ur Squamous Epith Cells 5 H Urine Mucus Many H - Diagnostic Findings Chest x-ray: report reviewed, image reviewed CT scan - chest: report reviewed, image reviewed Assessment and Plan Plan: Assessment: #1. Community acquired pneumonia. Patient ruled out for COVID-19 #2. 3.9 x 3.0 cm masslike density in the left upper lobe, possibly related to infectious etiology, pneumonia. Possibility of malignancy is not completely excluded and this will be followed to resolution with follow-up CT chest in 3-4 weeks #3. History of HER-2 positive right breast cancer, patient has completed her last chemotherapy 2 weeks ago #4. History of cervical cancer in 2004 #5. Nicotine dependence Plan: Chest x-ray and CTA chest reviewed There is a left upper lobe masslike consolidation that is felt to be related to infectious etiology, pneumonia Clinically patient is stable, she could be considered for discharge home today on 7 day course of oral Levaquin She will need outpatient follow-up with Dr. Gonsalez in the office in 7-10 days She will need follow-up CT chest with contrast in the 3-4 weeks, and if the left upper lobe density fails to resolve or improve, patient will need fine-needle aspiration biopsy Smoking cessation I performed a history & physical examination of the patient and discussed their management with my nurse practitioner, Sonia Stubbs. I reviewed the nurse practitioner's note and agree with the documented findings and plan of care. Lung sounds are positive for diminished breath sounds. The findings and the impression was discussed with the patient. I attest to the documentation by the nurse practitioner. Time with Patient: Greater than 30
[2021-03-04] MEDS: SODIUM CHLORIDE 0.9% 1,000 ML IV SCH ×2 (17:39→17:40)
[2021-03-04 19:15] VITALS: BP 113/82; PULSE 82; TEMP 99
--- NOTE | 2021-03-04 20:31 | P.PN ---
Progress Note - Text Progress Note Date: 03/04/21 I was notified by RN , that patient has left AMA.
--- NOTE | 2021-03-05 07:32 | P.DS ---
Providers Date of admission: 03/04/21 07:29 Expected date of discharge: 03/05/21 Attending physician: Silvestre Langford MD Consults: 03/04/21 07:24 Consult Physician Routine Consulting Provider: Dami Jarvis Consult Reason/Comments: known Do you want consulting provider notified?: Yes 03/04/21 13:27 Consult Physician Routine Consulting Provider: Viri Mcdonald Consult Reason/Comments: lung mass Do you want consulting provider notified?: Yes Primary care physician: Carl Cook MD Hospital Course: Discharge Diagnosis: Left AGAINST MEDICAL ADVICE Left upper lobe mass, suspect pneumonia Active breast cancer status post completion of chemotherapy 2 weeks ago Tobacco abuse Hospital Course: Patient is a 45-year-old female with HER-2 positive breast cancer and completed her last round of chemotherapy 2 weeks ago, prior cervical cancer in 2004, and tobacco abuse who presented to the emergency department due to acute onset left chest pain. In the ER she underwent an extensive evaluation. On arrival she was tachycardic at 100.6 and a pulse of 128. Chest x-ray showed possible developing infiltrate in the left perihilar region. She was started on Rocephin and Zithromax. She was given IV fluids. Consultation was placed for oncology. She then underwent a CT of the chest which showed a new consolidation in the left upper lobe. She was evaluated by pulmonary who felt this was most likely an infectious etiology. They recommended a course of antibiotics and repeat CT chest in 3-4 weeks. Patient ultimately left AGAINST MEDICAL ADVICE. She did have Levaquin sent through to complete. Patient Condition at Discharge: Fair Plan - Discharge Summary New Discharge Prescriptions: New Levofloxacin [Levaquin] 750 mg PO DAILY 7 Days #1 tab No Action Cpm/PE/Dm/Acetaminophen/Guaifn [Tylenol Cold-Flu Day-Nt Caplet] 2 tab PO Q8H PRN PRN Reason: cold/flu symptoms Discharge Medication List Cpm/PE/Dm/Acetaminophen/Guaifn [Tylenol Cold-Flu Day-Nt Caplet] 2 tab PO Q8H PRN 03/04/21 [History] Levofloxacin [Levaquin] 750 mg PO DAILY 7 Days #1 tab 03/04/21 [Rx] Follow up Appointment(s)/Referral(s): Viri Mcdonald MD [STAFF PHYSICIAN] - 1 Week Carl Cook MD [Primary Care Provider] - 1-2 days Discharge Disposition: Left Against Medical Advice
[2021-03-05] MEDS ORDERED: ENOXAPARIN 40 MG/0.4 ML SYRINGE SQ SCH (09:00)
[2021-03-05] MEDS ORDERED: AZITHROMYCIN 500 MG TAB PO SCH (09:00)
[2021-03-05] MEDS ORDERED: NICOTINE 14MG/24HR PATCH TRANSDERM SCH (09:00)
== END 2021-03-04 20:34 | disposition left against medical advice (07) ==
LOC: SUPCPDRO 05:07 → EC 05:07 → 1SOBS 07:29 → INTOOBSV 07:29 → UNDODISIN 20:34
PROVIDERS: ADMIT Internal Medicine; ATTEND Internal Medicine
DX: R07.89 Other chest pain (principal); R91.8 Other nonspecific abnormal finding of lung field; R00.0 Tachycardia, unspecified; Z20.822 Contact with and (suspected) exposure to COVID-19; C50.919 Malignant neoplasm of unspecified site of unspecified female breast; Z53.29 Procedure and treatment not carried out because of patient's decision for other reasons; R11.0 Nausea; R53.81 Other malaise; R19.7 Diarrhea, unspecified; F17.200 Nicotine dependence, unspecified, uncomplicated; Z15.01 Genetic susceptibility to malignant neoplasm of breast; Z17.0 Estrogen receptor positive status [ER+]; M19.90 Unspecified osteoarthritis, unspecified site; E11.9 Type 2 diabetes mellitus without complications; Z79.84 Long term (current) use of oral hypoglycemic drugs; Z88.5 Allergy status to narcotic agent; Z90.710 Acquired absence of both cervix and uterus; Z98.891 History of uterine scar from previous surgery; Z85.41 Personal history of malignant neoplasm of cervix uteri; Z92.21 Personal history of antineoplastic chemotherapy; Z80.3 Family history of malignant neoplasm of breast; Z80.8 Family history of malignant neoplasm of other organs or systems
CPT/HCPCS: 96361; 96365; 96367; 96375; 99285; 36415; 93005; 83880; 80053; 82550; 83605; 83735; 84484; 85025; 85610; 85730; 81001; 87040; 87635; 71046; 71275; G0378; J0456; J0696; J1170 ×2; J0131; J1885; Q9967; 96374

== ENCOUNTER → 2021-03-18 | Outpatient (CLI) | payer OTHER ==
--- NOTE | 2021-03-18 12:32 | ECHOF ---
Referral Reason:Z01.818 chemo exposure MEASUREMENTS -------- HEIGHT: 157.5 cm WEIGHT: 79.4 kg BP: RVIDd: 2.4 cm (< 3.3) IVSd: 0.9 cm (0.6 - 1.1) LVIDd: 3.9 cm (3.9 - 5.3) LVPWd: 1.2 cm (0.6 - 1.1) IVSs: 1.8 cm LVIDs: 2.2 cm LVPWs: 2.0 cm LAESV Index (A-L): 20.28 ml/m Ao Diam: 3.3 cm (2.0 - 3.7) AV Cusp: 1.7 cm (1.5 - 2.6) LA Diam: 2.6 cm (2.7 - 3.8) MV EXCURSION: 12.495 mm (> 18.000) MV EF SLOPE: 66 mm/s (70 - 150) EPSS: 0.7 cm MV E Xander: 0.48 m/s MV DecT: 103 ms MV A Xander: 0.67 m/s MV E/A Ratio: 0.70 RAP: 5.00 mmHg RVSP: 23.28 mmHg FINDINGS -------- Sinus rhythm. This was a technically good study. The left ventricular size is normal. Left ventricular wall thickness is normal. Overall left vent ricular systolic function is normal with, an EF between 55 - 60 %. The diastolic filling pattern is normal for the age of the patient 6.79. The right ventricle is normal in size. Normal LA size by volume 22+/-6 ml/m2. The right atrial size is normal. The aortic valve is trileaflet, and appears structurally normal. No aortic stenosis or regurgitation. The mitral valve is normal. There is trace mitral regurgitation. The tricuspid valve appears structurally normal. Trace tricuspid regurgitation present. Right juice tricular systolic pressure is normal at < 35 mmHg. There is no pulmonic regurgitation present. The aortic root size is normal. Normal inferior vena cava with normal inspiratory collapse consistent with estimated right atrial pre ssure of 5 mmHg. There is no pericardial effusion. CONCLUSIONS -------- 1. Left ventricular wall thickness is normal. 2. Overall left ventricular systolic function is normal with, an EF between 55 - 60 %. 3. The diastolic filling pattern is normal for the age of the patient 6.79 4. Normal LA size by volume 22+/-6 ml/m2. 5. The aortic valve is trileaflet, and appears structurally normal. No aortic stenosis or regurgitati on. 6. There is trace mitral regurgitation. 7. Trace tricuspid regurgitation present. 8. There is no pericardial effusion. BAG SORTER: Crystal Mccarthy RDCS
== END | disposition home or self-care (01) ==
LOC: RADECHMAIN 11:35
PROVIDERS: ATTEND Internal Medicine Hematology & Oncology
DX: I08.1 Rheumatic disorders of both mitral and tricuspid valves (principal)
CPT/HCPCS: 93306

== ENCOUNTER → 2021-04-08 | Outpatient (CLI) | payer OTHER ==
[2021-04-08 14:37] VITALS: BP 106/77; PULSE 111; RESP 16; TEMP 98.6
--- NOTE | 2021-04-08 14:45 | P.PN ---
Subjective Progress Note Date: 04/08/21 Principal diagnosis: right breast [id number]+Pr+Her2+ invasive ductal carcinoma IB Iram is a 44-year-old white female who is seen in consultation for Tessa De La Cruz NP regarding a right breast monographic abnormality on 07-10-20. The patient states that approximately 2 years ago she noted a lesion in her right breast which has increased in size. And then most recently she noted a second lesion in the lateral aspect of the right breast. A bilateral mammogram was performed on . This revealed a 20 mm mass in the lower inner quadrant of the right breast as well as group/cluster calcifications in the lower quadrant central position of the right breast consistent with spiculated mass with calcifications, there was also a 2.5 cm mass in the right upper central breast. Nothing of concern was noted in the left breast. The patient had a right breast ultrasound performed which revealed a 2.9 cm lesion at 4:00, a 2.2 cm lesion at 6:00, and a 1.5 cm lesion at 1:00. Multiple enlarged nodes in the axilla were noted. Other than the area in the right breast the patient has not noted any other lumps masses or nodules in her breast. She is complaining of any pain in the breast. No history of recent trauma or infection in the breast. No prior breast surgery. And no abnormal nipple discharge. The patient herself did have cervical cancer in 2004, at this time she is disease free from this. The patient on 07-27-20 underwent biopsy of the right breast at 4, 6, and 12:00 as well as the axilla. The lesion at 12:00 was an intraductal papilloma the lesion at 4:00 and 6:00 were both positive for invasive ductal carcinoma and the lesion in the axilla was invasive cancer as well. She had multiple enlarged lymph nodes. Metastatic workup at that time was negative. She underwent neoadjuvant chemotherapy with TCHP started on , this was completed on 02-26-21. The patient had genetic testing done and was noted to be CHECK 2 positive. Caffeine: 5 cups/day Nicotine: 1/ppd 28 years Theophylline:none Family History: patient: cervical cancer father: probable breast cancer paternal grandfather: breast and pancreatic cancer maternal grandmother and great grandmother: breast and one also had ovarian paternal aunt: thyroid cancer two cousins on fathers side: thyroid cancer Hormonal History: menarche: 14 , breast fed: yes, age at first : 21 periods: regular, dx at 35 with premenopause BCP: none hormones: none Surgical history: 1. 3 C-sections 2. Surgery for cervical cancer Medical History: Hips she does not have full balls and sockets congenitally Social History: smoke: 1/ppd 28 years alcohol: twice a week drugs: Marijuana daily since 2004, to sleep to increase appetite, for anxiety - Constitutional Constitutional: Reports sweats, Denies chills - EENT Comment: Presbyopia Eyes: denies blurred vision, denies pain Ears: deny: decreased hearing, tinnitus Ears, nose, mouth and throat: Denies headache, Denies sore throat - Breasts Breasts: bilateral: as per HPI - Cardiovascular Cardiovascular: Denies chest pain, Denies shortness of breath - Respiratory Comment: smoker - Gastrointestinal Gastrointestinal: Denies abdominal pain, Denies diarrhea, Denies nausea, Denies vomiting - Genitourinary (Female) Genitourinary: Denies dysuria, Denies hematuria - Menstruation Menstruation: Reports period normal - Musculoskeletal Comment: Arthritis, muscle cramps in her calves - Integumentary Integumentary: Denies pruritus, Denies rash - Neurological Neurological: Denies numbness, Denies weakness - Psychiatric Psychiatric: Denies anxiety, Denies depression - Endocrine Comment: weight gain Endocrine: Reports fatigue, Reports weight change - Hematologic/Lymphatic Comment: none - Allergic/Immunologic Allergic/Immunologic: Reports seasonal allergies Objective - Vital Signs Vital signs: Intake & Output 04/07/21 04/08/21 04/08/21 18:59 06:59 18:59 Weight 77.111 kg - Exam BMI 31.1 - Constitutional General appearance: Present: cooperative - EENT Eyes: Present: EOMI ENT: Present: hearing grossly normal - Neck Neck: Present: normal ROM - Respiratory Respiratory: bilateral: CTA - Cardiovascular Rhythm: regular Heart sounds: normal: S1, S2 - Gastrointestinal General gastrointestinal: Present: soft - Integumentary Integumentary: Present: normal turgor - Musculoskeletal Musculoskeletal: Present: gait normal - Psychiatric Psychiatric: Present: A&O x's 3, appropriate affect, intact judgment & insight - Additional findings Additional findings: Breast examination: Bra: 36 DD Inspection: Bilateral grade 3 ptosis, heart shape tattooed on the left breast which patient wishes to keep Palpation: Right breast: Multi-positional exam fibrocystic changes the nodularity has decreased after chemotherapy Right axilla: Shoddy adenopathy Left breast: Multi-positional exam fibrocystic changes Left axilla: No adenopathy of concern Assessment and Plan Assessment: Impression: 1. Patient stated that on the right breast cancer status post neoadjuvant chemotherapy 2. PET scan scheduled for next week 3. Patient wishes to have bilateral mastectomy with reconstruction has already seen plastic surgery 4. CHEK 2 + Plan: 1. Check PET scan results if no evidence of metastatic disease proceed with surgery 2. Bilateral mastectomy with right axillary node dissection, recommend needle localization of lymph node which was biopsied, sentinel node injection 3. Bilateral breast reconstruction 4. Port-A-Cath removal 5. appointment with physical therapy regarding lymphedema 6. Medical clearance Risks and benefits of the procedure discussed with the patient. Risks include but are not limited to bleeding, infection, reaction to the anesthetic. Secondary to axillary dissection she understands there may be risk of injury to the thoracodorsal or long thoracic nerves. Additionally the urine will turn green secondary to injection of methylene blue. CC: Tessa Wang
== END ==
LOC: WWCWWP 14:00
PROVIDERS: ATTEND Surgery
DX: C50.311 Malignant neoplasm of lower-inner quadrant of right female breast (principal); F17.210 Nicotine dependence, cigarettes, uncomplicated; Z92.21 Personal history of antineoplastic chemotherapy; Z88.5 Allergy status to narcotic agent

== ENCOUNTER → 2021-04-09 | Outpatient (CLI) | payer OTHER ==
--- NOTE | 2021-04-09 16:16 | PE ---
Nuclear medicine PET/CT HISTORY: Right Breast cancer, subsequent, C 50.811 Patient received 10.6 mCi F-18 FDG intravenously and delayed scanning was performed from the skull ba se to the mid thighs. Localization and attenuation correction CT scan was performed. Correlation to CT chest abdomen pelvis 09/24/2020, CT chest 03/04/2021 Chest and neck: There is no supraclavicular or cervical adenopathy. Port-A-Cath is noted incidentally in courses via right subclavian approach with the distal tip in the superior vena cava. Soft tissue mass in the right breast shows an associated clip, no associated uptake. There is no mediastinal, axi llary, or hilar adenopathy. There are emphysematous changes within the lungs. The previously identifi ed soft tissue mass in the superior segment left lower lobe is nearly entirely resolved, some bandlik e areas of increased attenuation persists extending to the pleura likely representing some residual s carring. ABDOMEN: There is no evident liver mass or adrenal mass. There is no retroperitoneal adenopathy or as cites. No suspicious uptake. No pelvic adenopathy. Osseous structures show no suspicious uptake. IMPRESSION: No suspicious uptake, interval improvement in patient's abnormal soft tissue in the left lower lobe.
== END | disposition home or self-care (01) ==
LOC: RADPETMAIN 11:26
PROVIDERS: ATTEND Internal Medicine Hematology & Oncology
DX: C50.911 Malignant neoplasm of unspecified site of right female breast (principal)
CPT/HCPCS: 78815; A9552

== ENCOUNTER 2021-05-11 06:29 | Observation (INO) | payer OTHER ==
[2021-05-06 11:37] VITALS: BMI 31.1
--- NOTE | 2021-05-06 15:54 | P.PN ---
Subjective Progress Note Date: 05/06/21 Principal diagnosis: Right breast stage IB invasive ductal carcinoma right breast [id number]+Pr+Her2+ invasive ductal carcinoma IB Iram is a 44-year-old white female who is seen in consultation for Tessa De La Cruz NP regarding a right breast monographic abnormality on 07-10-20. The patient states that approximately 2 years ago she noted a lesion in her right breast which has increased in size. And then most recently she noted a second lesion in the lateral aspect of the right breast. A bilateral mammogram was performed on . This revealed a 20 mm mass in the lower inner quadrant of the right breast as well as group/cluster calcifications in the lower quadrant central position of the right breast consistent with spiculated mass with calcifications, there was also a 2.5 cm mass in the right upper central breast. Nothing of concern was noted in the left breast. The patient had a right breast ultrasound performed which revealed a 2.9 cm lesion at 4:00, a 2.2 cm lesion at 6:00, and a 1.5 cm lesion at 1:00. Multiple enlarged nodes in the axilla were noted. Other than the area in the right breast the patient has not noted any other lumps masses or nodules in her breast. She is complaining of any pain in the breast. No history of recent trauma or infection in the breast. No prior breast surgery. And no abnormal nipple discharge. The patient herself did have cervical cancer in 2004, at this time she is disease free from this. The patient on 07-27-20 underwent biopsy of the right breast at 4, 6, and 12:00 as well as the axilla. The lesion at 12:00 was an intraductal papilloma the lesion at 4:00 and 6:00 were both positive for invasive ductal carcinoma and the lesion in the axilla was invasive cancer as well. She had multiple enlarged lymph nodes. Metastatic workup at that time was negative. She underwent neoadjuvant chemotherapy with TCHP started on , this was completed on 02-26-21. The patient had genetic testing done and was noted to be CHECK 2 positive. The patient had a recent PET scan on 7920 which did not show any suspicious uptake. The patient's case was reviewed with Dr. Box from medical oncology and he feels that the patient is ready for surgical intervention. The patient wishes bilateral mastectomy with a right axillary node dissection and subpectoral implant reconstruction. Dr. Box has recommended that Port-A-Cath not be removed if possible as patient is still receiving HP. Caffeine: 5 cups/day Nicotine: ppd 28 years Theophylline:none Family History: patient: cervical cancer father: probable breast cancer paternal grandfather: breast and pancreatic cancer maternal grandmother and great grandmother: breast and one also had ovarian paternal aunt: thyroid cancer two cousins on fathers side: thyroid cancer Hormonal History: menarche: 14 , breast fed: yes, age at first : 21 periods: regular, dx at 35 with premenopause BCP: none hormones: none Surgical history: 1. 3 C-sections 2. Surgery for cervical cancer Medical History: Hips she does not have full balls and sockets congenitally Social History: smoke: ppd 28 years alcohol: twice a week drugs: Marijuana daily since 2004, to sleep to increase appetite, for anxiety - Constitutional Constitutional: Reports sweats, Denies chills - EENT Comment: Presbyopia Eyes: denies blurred vision, denies pain Ears: deny: decreased hearing, tinnitus Ears, nose, mouth and throat: Denies headache, Denies sore throat - Breasts Breasts: bilateral: as per HPI - Cardiovascular Cardiovascular: Denies chest pain, Denies shortness of breath - Respiratory Comment: smoker - Gastrointestinal Gastrointestinal: Denies abdominal pain, Denies diarrhea, Denies nausea, Denies vomiting - Genitourinary (Female) Genitourinary: Denies dysuria, Denies hematuria - Menstruation Menstruation: Reports period normal - Musculoskeletal Comment: Arthritis, muscle cramps in her calves - Integumentary Integumentary: Denies pruritus, Denies rash - Neurological Neurological: Denies numbness, Denies weakness - Psychiatric Psychiatric: Denies anxiety, Denies depression - Endocrine Comment: weight gain Endocrine: Reports fatigue, Reports weight change - Hematologic/Lymphatic Comment: none - Allergic/Immunologic Allergic/Immunologic: Reports seasonal allergies Objective - Vital Signs Vital signs: Intake & Output 05/05/21 05/06/21 05/06/21 18:59 06:59 18:59 Weight 77.111 kg - Exam BMI 31.1 - Constitutional General appearance: Present: cooperative - EENT Eyes: Present: EOMI ENT: Present: hearing grossly normal - Neck Neck: Present: normal ROM - Respiratory Respiratory: bilateral: CTA - Cardiovascular Heart sounds: normal: S1, S2 - Gastrointestinal General gastrointestinal: Present: soft - Integumentary Integumentary: Present: normal turgor - Musculoskeletal Musculoskeletal: Present: gait normal - Psychiatric Psychiatric: Present: A&O x's 3, appropriate affect, intact judgment & insight - Additional findings Additional findings: Breast examination: Product: 36 DT Inspection: Bilateral grade 3 ptosis, heart-shaped tattoo on the left breast which patient wishes to keep Palpation: Right breast: Multiple positional exam fibrocystic changes the nodularity is decreased after chemotherapy Right axilla: Shoddy adenopathy Left breast: Multiple positional exam fibrocystic changes Left axilla no adenopathy of concern Assessment and Plan Assessment: Impression: Patient status post neoadjuvant chemotherapy for stage IB right breast cancer 2. PET scan no evidence of metastatic disease from 7921 3. Check to positive genetic mutation 4. Patient wishes to have bilateral mastectomy with reconstruction has already seen plastic surgery Plan: 1. Bilateral mastectomy with right axillary node dissection, recommended needle localization of lymph node which was biopsied, and sentinel node injection 2. Bilateral breast reconstruction 3. Port-A-Cath removal dependent on patient's desire Dr. Box would like to keep the Port-A-Cath in place Risks and benefits of the procedure discussed with the patient. Risks include but are not limited to bleeding, infection, reaction to the anesthetic. She understands and wishes to proceed.
[~2021-05-11 06:29] MED LIST changes: +DEXAMETHASONE SOD PHOSPHATE 4 MG/ML 1 ML VIAL IV ONE; -HEPARIN SODIUM,PORCINE 5,000 UNIT/ML 1 ML VIAL SQ PRN; +HEPARIN SODIUM,PORCINE/PF 5,000 UNIT/0.5 ML SYRINGE SQ PRN; +LACTATED RINGERS 1,000 ML IV SCH; +LIDOCAINE 1% (10MG/ML) FOR IV START INTRADERMA PRN
[2021-05-11] MEDS ORDERED: ONDANSETRON 4 MG/2 ML VIAL IVP PRN ×2 (07:00→12:25)
[2021-05-11] MEDS ORDERED: HYDROmorphone 0.5 MG/0.5 ML SYRINGE IVP PRN (07:00)
[2021-05-11] MEDS ORDERED: ALPRAZolam 0.5 MG TAB ONE (07:13)
[2021-05-11] MEDS ORDERED: LIDOCAINE 1% INJ 10MG/ML (20 ML MDV) SQ ONE (08:20)
--- NOTE | 2021-05-11 08:37 | USB ---
Ultrasound-guided right axilla lymph node needle localization DATE OF EXAM: 05/11/2021 CLINICAL HISTORY: Previous right axilla lymph node biopsy with clip placement. Requested for targeting of the axilla clip for needle localization. The procedure was discussed with the patient. The risks, complications, benefits, and alternatives were discussed and any questions were answered. Informed consent was obtained. The patient was placed supine on the ultrasound table and prepped and draped in the usual sterile fashion. All elements of maximal barrier and sterile technique were utilized. Under ultrasound guidance, a 5 cm Kopan's needle was placed adjacent to the surgical clip. The guidewire was placed. The needle was removed. The patient was stable throughout the procedure and remained stable upon discharge from Department of Radiology. IMPRESSION: 1. Successful ultrasound-guided right axilla clip needle localization. Pathology Results: Malignant A. LEFT BREAST, MASTECTOMY: Benign breast with fibrocystic changes. B. RIGHT BREAST, MASTECTOMY: Breast with scar/fibrosis, fibrocystic changes and previous biopsy site changes. No residual malignancy identified status post neoadjuvant chemotherapy treatment. See Surgical Pathology Cancer Case Summary. C. RIGHT AXILLARY CONTENTS: Eight lymph nodes with focal granulomatoid inflammation, histiocytes and fibrosis consistent with treatment related changes, one node positive for viable micrometastatic carcinoma consistent with high grade ductal breast primary (1 of 8 lymph nodes positive for micrometastatic carcinoma). See Surgical Pathology Cancer Case Summary. Recommendation Surgical consult. MTDD
[2021-05-11] MEDS ORDERED: PROPOFOL 10 MG/ML 20 ML VIAL IV ONE (09:08)
[2021-05-11] MEDS ORDERED: KETOROLAC 15 MG/ML 1 ML VIAL ONE ×2 (09:08→13:20)
[2021-05-11] MEDS ORDERED: fentaNYL (PF) 50 MCG/ML 2 ML AMP ONE (09:08)
[2021-05-11] MEDS ORDERED: SUCCINYLCHOLINE CHLORIDE 100 MG/5 ML SYR IV ONE (09:08)
[2021-05-11] MEDS ORDERED: GLYCOPYRROLATE 0.2 MG/ML 2 ML VIAL ONE (09:08)
[2021-05-11] MEDS ORDERED: KETAMINE 10 MG/ML 20 ML VIAL ONE (09:08)
[2021-05-11] MEDS ORDERED: MIDAZOLAM 2 MG/2 ML VIAL ONE (09:08)
[2021-05-11] MEDS ORDERED: LIDOCAINE 1% INJ 10MG/ML (20 ML MDV) ONE (09:08)
[2021-05-11] MEDS ORDERED: HYDROmorphone (PF) 1 MG/ML ONE (09:08)
--- NOTE | 2021-05-11 09:33 | P.NAPBC ---
NAPBC Queries - [facility] Queries Was patient's case review presented at [facility] tumor board? If no, comment.: Yes Was patient's pathology reviewed at [facility]? If no, comment.: Yes Was breast conservation surgery offered? If no, comment.: No (patient wanted mastectomy) Was sentinel node biopsy offered? If no, comment.: Yes Was diagnosis confirmed by percutaneous core biopsy? If no, comment.: Yes Is patient mastectomy patient?: Yes Was a preop referral to reconstructive surgeon offered?: Yes Clinical Stage: stage IB
--- NOTE | 2021-05-11 11:44 | P.OP ---
Date of Procedure: 05/11/21 Preoperative Diagnosis: History of right breast cancer Postoperative Diagnosis: History of right breast cancer Procedure(s) Performed: Removal of right subclavian Port-A-Cath Anesthesia: UMER Surgeon: Shiv Gomez Estimated Blood Loss (ml): 5 Pathology: none sent Condition: stable Disposition: PACU Description of Procedure: The patient's placed on the operative table in supine position. She been prepped and draped by Dr. Pickard. The skin was incised port site and using b giovany and sharp dissection with cautery the port was dissected free. The catheters were intact. He was easily achieved with cautery. The skin was closed by Dr. Pickard. Patient then proceeded to undergo her breast reconstruction
[2021-05-11] MEDS ORDERED: LACTATED RINGERS 1,000 ML IV ONE (12:19)
[2021-05-11] MEDS ORDERED: oxyCODONE-APAP 5-325MG 1 EACH TAB PO PRN (12:25)
[2021-05-11] MEDS ORDERED: HYDROmorphone 1 MG/ML 1 ML SYRINGE IVP PRN (12:25)
[2021-05-11] MEDS ORDERED: NALOXONE 0.4 MG/ML 1 ML VIAL IV PRN ×2 (12:25→16:41)
--- NOTE | 2021-05-11 12:25 | P.OP ---
Date of Procedure: 05/11/21 Preoperative Diagnosis: Right breast stage IB invasive ductal carcinoma status post neoadjuvant chemotherapy Postoperative Diagnosis: Same Procedure(s) Performed: Bilateral mastectomy with a right axillary node dissection, methylene blue injection for sentinel node identification Anesthesia: UMER Surgeon: Lani Turcios Estimated Blood Loss (ml): 20 IV fluids (ml): 400 Pathology: other (Bilateral breast, right axillary contents) Condition: stable Disposition: same day Indications for Procedure: Right breast invasive ductal carcinoma stage I B Operative Findings: Bilateral dense breast, axillary breast tissue Description of Procedure: Iram is a 45-year-old white female who is status post neoadjuvant chemotherapy for a stage IB right breast invasive ductal carcinoma. She is going to undergo a bilateral mastectomy with right axillary sentinel node biopsy, needle localization of lymph node which had been identified preoperatively and biopsied, and axillary node dissection. The patient has a right chest wall Port-A-Cath in place. She states it is no longer functioning. She wishes it to be removed. I discussed with her the Dr. Box would like to retain it as she still has further treatments recommended as per medical oncology but she states it is not working and again she wishes it to be removed. Following induction of anesthesia the neoprobe was used to interrogate the axilla. Minimal radioactivity was identified. Therefore half-strength methylene blue, 20 mL was injected in the periareolar area and the breast was massaged. This was done for lymphatic mapping. Following being seen in the radiology department the patient was taken to the surgical suite. Skin markings were placed for skin sparing mastectomies in conjunction with plastic surgeon Dr. Pickard. Markings for bilateral skin sparing mastectomies were placed. The left breast was approached initially. Circumareolar incision was made and carried down through the skin and subcutaneous tissue to the plane between the subcutaneous tissue and the breast tissue. Circumferential dissection was performed. Hemostasis was attained using electrocautery device as well as the Harmonic scalpel. Dissection was performed down to the pectoralis muscle. The breast was prepped from medial to lateral off the pectoralis muscle. After the breast was removed a short suture was placed superiorly and long suture placed laterally for orientation. The cavity was examined for hemostasis and well irrigated. The right breast was then approached. Skin markings again had been placed for skin sparing mastectomy in conjunction with plastic surgery. Circumareolar incision was performed. Circumferential dissection was performed in the plane between the subcutaneous tissue and the breast tissue. This was dissected down to the pectoralis muscle. Hemostasis was attained using the electrocautery device as well as the Harmonic scalpel. The breast was brought off the pectoralis muscle from medial to lateral. The lateral border of the pectoralis major muscle dissection continued to the pectoralis minor muscle. The breast was removed and a long suture was placed further lateral orientation and a short suture was placed placed superiorly. The axilla was approached. Needle localization of the lymph node which have been positive was performed preoperatively. The needle was identified as it entered the skin and dissection was performed along this route to the area of the axilla. Careful dissection along the pectoralis minor muscle was followed superiorly to the level of the axillary vein. The tissues were swept inferiorly being careful to identify and preserve the area of the thoracodorsal nerve and long thoracic nerve. Several intercostal brachial nerves were removed in the process. Several vessels were ligated. The neoprobe was utilized to identify the lymph node with greatest radioactivity. This appeared to be consistent with a lymph node which have been biopsied preoperatively and was needle localized. The 10 second count on this node was 121. The background 10 second count was minimal. No blue lymph node was identified. The axillary contents were sent for pathologic evaluation. Dr. Pickard is placing bilateral subpectoral expanders. Dr. Hollis removed the Port-A-Cath.
[2021-05-11] MEDS ORDERED: HYDROmorphone 0.5 MG/0.5 ML SYRINGE IVP ONE ×4 (13:15→15:37)
[2021-05-11] MEDS ORDERED: diphenhydrAMINE 50 MG/ML 1 ML VIAL ONE (13:20)
[2021-05-11] MEDS ORDERED: diphenhydrAMINE 50 MG/ML 1 ML VIAL IVP ONE (13:20)
[2021-05-11] MEDS ORDERED: KETOROLAC 15 MG/ML 1 ML VIAL IVP ONE (13:20)
--- NOTE | 2021-05-11 14:30 | NM ---
EXAMINATION TYPE: NM sentinel node injection DATE OF EXAM: 05/11/2021 COMPARISON: NONE HISTORY: Breast cancer TECHNIQUE AND FINDINGS: The procedure of sentinel lymph node injection was explained to the patient. The benefits, alternatives, and risks were discussed. An informed consent was then obtained. Overlying skin is cleaned with sterile alcohol. Following this, 498 uCi Tc99m Tilmanocept was inject ed in the upper outer aspect of the right nipple intradermally. The patient tolerated the procedure well without any immediate complication. The patient was kept in the radiology department for short stay after the procedure and then taken to surgery for surgical p rocedure what is presumed intraoperative gamma probe will be used for sentinel lymph node detection. IMPRESSION: Right breast radiotracer injection for sentinel node localization as above.
--- NOTE | 2021-05-11 15:46 | MM ---
EXAMINATION TYPE: MG pre op needle loc RT DATE OF EXAM: 05/11/2021 COMPARISON: 03/10/2021 CLINICAL HISTORY: Right breast surgical clip in the axilla requested for needle localization TECHNIQUE: Needle localization with wire placement and surgical excision of area of concern in the right axilla. FINDINGS: The procedure of needle localization with wire placement and than surgical excision was explained to the patient. Benefits, alternatives, and risks were discussed. An informed consent was then obtained. Patient was prepped and draped in usual sterile fashion. Lidocaine buffered with bicarbonate was used as anesthetic into the skin and subcutaneous tissue up to the level of area of concern. A 5 cm needle was used. It was placed via a lateral approach under sonographic guidance. Repeat ultrasound demonstrates the needle to be in satisfactory position relative to the targeted area. At this point, wire was placed and the needle was withdrawn. The wire was fixed to patient's skin. Images were reviewed with the surgeon. The patient tolerated the procedure well without any immediate complication. The patient was kept in the radiology department for short stay after the procedure and then taken to surgery for surgical excision. Targeted clip and wire are identified in specimen mammogram. The patient was kept in hospital for short stay after the procedure and then discharged home in stable condition. IMPRESSION: Successful, uncomplicated needle localization with wire placement and surgical excision of requested previous mammotome biopsy clip in the right axilla, full pathology results to follow. Pathology Results: Malignant A. LEFT BREAST, MASTECTOMY: Benign breast with fibrocystic changes. B. RIGHT BREAST, MASTECTOMY: Breast with scar/fibrosis, fibrocystic changes and previous biopsy site changes. No residual malignancy identified status post neoadjuvant chemotherapy treatment. See Surgical Pathology Cancer Case Summary. C. RIGHT AXILLARY CONTENTS: Eight lymph nodes with focal granulomatoid inflammation, histiocytes and fibrosis consistent with treatment related changes, one node positive for viable micrometastatic carcinoma consistent with high grade ductal breast primary (1 of 8 lymph nodes positive for micrometastatic carcinoma). See Surgical Pathology Cancer Case Summary. Recommendation Surgical consult. [facility]
[2021-05-11] MEDS ORDERED: MIDAZOLAM 2 MG/2 ML VIAL IVP ONE (15:52)
[2021-05-11] MEDS: HEPARIN SODIUM,PORCINE/PF 5,000 UNIT/0.5 ML SYRINGE SQ SCH ×2 (16:00→22:20)
[2021-05-11] MEDS: SODIUM CHLORIDE 0.9% 1,000 ML IV SCH ×2 (16:26→22:20)
[2021-05-11] MEDS: HYDROmorphone PCA 10 MG/50 ML BAG IV PRN (17:50)
--- NOTE | 2021-05-11 21:35 | OP ---
OPERATIVE REPORT DATE OF SURGERY: May 11, 2021. SURGEON: Dr. José Junior. PREOPERATIVE DIAGNOSES: 1. Acquired loss right and left breast. 2. Invasive breast cancer, right breast. POSTOPERATIVE DIAGNOSES: 1. Acquired loss right and left breast. 2. Invasive breast cancer, right breast. OPERATIVE PROCEDURE: 1. Immediate reconstruction left breast following mastectomy with insertion of tissue highway construction inspector and subsequent outpatient expansion. 2. Immediate reconstruction of right breast following mastectomy with insertion of tissue highway construction inspector and subsequent outpatient expansion. 3. Implantation of reconstructive graft for right and left breast reconstruction. OPERATIVE INDICATIONS: The patient is a 45-year-old female with invasive cancer right breast resolve with neoadjuvant chemotherapy prior to today's planned procedures. The patient was seen and evaluated at my office for breast reconstruction and she has elected to proceed with bilateral mastectomies for treatment of breast cancer with a right modified radical mastectomy on the right and left simple mastectomy on the left. I have counseled the patient as to breast reconstruction. She has elected to pursue a tissue highway construction inspector style reconstruction. She also has staged nature of the surgery as well as potential risks and complications related to surgery including, but not limited to hematoma, seroma, wound healing problems and infection among others. She has requested that I perform the surgery. OPERATIVE PROCEDURE SUMMARY: The patient is in the preoperative area, markings made. Procedure reviewed. All questions answered. She was transported to the operative room where she was placed in supine position. The patient then received methylene blue injection into the right nipple-areolar complex area by Dr. Turcios. She was then prepped and draped in usual fashion. Dr. Turcios, the surgical team then proceeded with the left simple mastectomy through a circumareolar approach. Once that surgery is completed, I ended the procedure when Dr. Turcios proceeded with the right modified radical mastectomy. The left breast reconstruction was initiated by identifying the pectoralis major muscle and chest wall and areolar tissue viable lateral border allowing entry into the potential plane of the pectorals major muscles bluntly developed, medial attachment fibers of the muscle was released with cautery but not all sternal attachments. Then inferiorly additional muscle tissue was required for sufficient reconstructive coverage including rectus abdominis muscle fascia, external abdominal oblique muscle fascia and laterally serratus anterior muscle fascia. All elevated through this approach with cautery maintaining hemostasis with cautery during the session. Once a sufficient sized submuscular reconstructive pocket was created, dissection stopped, irrigation was performed. Hemostasis was excellent. Site was packed open with moist laparotomy sponges. Once the right modified radical mastectomy was completed, I then proceeded with the right breast reconstruction. Again the pectorals major muscle was identified where it joined the chest wall in a lateral aspect, loose connective tissue was divided with cautery here allowing entry into the potential plane between the pectoralis major minor muscles which was bluntly developed. Medial attachments of the pectorals major muscles of the ribs with this cautery without sternal inferiorly, additional muscle tissue was required for sufficient coverage of the highway construction inspector including the rectus abdominis muscle and fascia, external abdominal internal oblique muscle fascia and laterally serratus anterior muscle fascia. All elevated through this approach with cautery maintaining hemostasis while dissecting with cautery, once a sufficient size submuscular reconstructive pocket was created, both the right and left side were inspected for symmetry. Minor adjustments made and hemostasis was excellent on each side. The cavities were sized. The tissue expanders were now opened on the field. Both expanders were from the [employer] model 133SFD 500 mL volume, reference #133 [id number]. Serial number on the left side was [id number] and for the right side [id number]. The devices were opened onto the sterile field. Irrigated with saline. They were only handled by the surgeon. All layers extracted from each device. 100 mL 0.9 normal saline instilled in to each device initially, the right-sided and left-sided device were placed into the reconstructive cavities in optimal position. The muscle flap tissue could not be approximated over either device in a safe fashion. Therefore SurgiMend reconstructive graft was opened on the field. Two pieces requiring each piece measuring 10 x 15 cm fenestrated. The SurgiMend was revitalized with room temperature saline. Once ready, the SurgiMend was inserted in the reconstructive cavity on the right and left side in a modified inferior sling orientation of the muscle flap tissue but cover the highway construction inspector and then inset using interrupted and short running 0 Vicryl sutures. Complete coverage of each highway construction inspector was obtained. Additional saline was added to each highway construction inspector making a final volume of 300 mL, which seemed to be optimal amount based on the patient's tissues and the skin envelope at this time. Irrigation was performed. Hemostasis was excellent in both surgical flores. 19 round Gregg drain was now inserted, 1 on the left side and 2 on the right side, getting 1 drain in the right axillary dissection area and the other for the reconstructive portion. Drains were brought through a separate stab incision right and left anterior lower chest wall and sutured in place with 2-0 Prolene. Both mastectomy procedures completed through a circumareolar approach. The incisions were now closed in a pursestring fashion using deep dermal 2-0 circumferential running Prolene followed by fine approximation of the dermis where necessary for the interrupted 4-0 Monocryl and then completing epidermal closure with rob on each side. Close bulb suction patent. The surgical field was cleansed with saline. Dried postoperative bandages placed using drain sponges and drain sites, Kerlix squares over the surgical reconstruction, secured with 3 Medipore tape. ESTIMATED BLOOD LOSS: For the procedure for this portion was [address] construction inspector was filled to a final volume of 300 mL. The patient was extubated and transferred to recovery room in good condition with stable vital signs. There were no complications. MMODL / IJN: [id number] / MILENA
[2021-05-12] MEDS: HYDROmorphone PCA 10 MG/50 ML BAG IV PRN (05:58)
[2021-05-12 06:09] LABS: Anisocytosis Slight; Basophils % (A) 0 %; Eosinophils # (A) 0.1 k/uL (0-0.7); Eosinophils % (A) 1 %; HCT 36.8 % (34.0-46.0); Lymphocytes # (A) 1.7 k/uL (1.0-4.8); Lymphocytes % (A) 16 %; MCH 30.6 pg (25.0-35.0); MCHC 32.5 g/dL (31.0-37.0); Mean Platelet Volume 8.8; Monocytes # (A) 0.6 k/uL (0-1.0); Monocytes % (A) 5 %; Neutrophils # (A) 8.2 k/uL (1.3-7.7); Neutrophils % (A) 77 %; Platelet Count 170 k/uL (150-450); RBC 3.91 m/uL (3.80-5.40); RDW 16.7 % (11.5-15.5); WBC 10.6 k/uL (3.8-10.6)
[2021-05-12 06:20] LABS: Glucose,Whole Blood 104 mg/dL (75-99)
[2021-05-12 08:56] VITALS: BP 104/67; PULSE 60; RESP 18; TEMP 98.2
[2021-05-12] MEDS: SODIUM CHLORIDE 0.9% 1,000 ML IV SCH (09:00)
[2021-05-12] MEDS: HEPARIN SODIUM,PORCINE/PF 5,000 UNIT/0.5 ML SYRINGE SQ SCH (09:00)
[2021-05-12] MEDS ORDERED: HYDROcodone/APAP 5-325MG 1 EACH TAB PO PRN (09:54)
--- NOTE | 2021-05-12 10:08 | P.PN ---
Subjective Progress Note Date: 05/12/21 Principal diagnosis: Right breast stage IB invasive ductal carcinoma right breast [id number]+ invasive ductal carcinoma IB Iram is postop day #1 from bilateral mastectomy with right axillary node dissection, bilateral subpectoral implant reconstruction. She initially had some difficulty with pain control but is doing well at this time. She has been using a CHIEF DIGITAL OFFICER pump. Objective - Vital Signs Vital signs: Vital Signs Temp 98.2 F 05/12/21 08:15 Pulse 60 05/12/21 08:15 Resp 18 05/12/21 08:15 BP 104/67 05/12/21 08:15 Pulse Ox 96 05/12/21 08:15 Intake & Output 05/11/21 05/12/21 05/12/21 18:59 06:59 18:59 Intake Total 2050 200 Output Total 630 1025 Balance 1420 -825 Weight 81.2 kg Intake: IV 2050 Oral 200 Output: Drainage 80 225 drain #1 40 50 drain#2 20 110 drain#3 20 65 Urine 480 800 Uretheral (Andersen) 100 Estimated Blood Loss 70 Other: Voiding Method Toilet # Voids 1 - Constitutional General appearance: Present: cooperative - EENT Eyes: Present: EOMI ENT: Present: hearing grossly normal - Neck Neck: Present: normal ROM - Respiratory Respiratory: bilateral: CTA - Cardiovascular Heart sounds: normal: S1, S2 - Integumentary Integumentary Comment(s): Incisions clean and dry bilaterally ANTONIO output is serous: ANTONIO #1 30 mL ANTONIO #2 90 mL ANTONIO #3 45 mL - Psychiatric Psychiatric: Present: A&O x's 3, appropriate affect, intact judgment & insight - Labs CBC & Chem 7: 05/12/21 05:06 Labs: Abnormal Lab Results - Last 24 Hours (Table) 05/12/21 05/12/21 Range/Units 05:06 06:18 RDW 16.7 H (11.5-15.5) % Neutrophils # 8.2 H (1.3-7.7) k/uL POC Glucose (mg/dL) 104 H (75-99) mg/dL Assessment and Plan Assessment: Impression/Plan: Patient status post neoadjuvant chemotherapy for stage IB right breast cancer 2. PET scan no evidence of metastatic disease from 7921 3. Chek-2 positive genetic mutation 4. Patient POD 1 bilateral mastectomy with reconstruction doing well at this time
--- NOTE | 2021-05-12 10:11 | P.DS ---
Providers Date of admission: 05/11/21 21:57 Attending physician: Lani Turcios Consults: 05/11/21 12:28 Consult Physician Routine Consulting Provider: Jovanni Bain Consult Reason/Comments: medical managment Do you want consulting provider notified?: Yes Primary care physician: Carl Cook MD Plan - Discharge Summary Discharge Rx Participant: Yes New Discharge Prescriptions: No Action Acetaminophen Tab [Tylenol Tab] 500 mg PO DAILY PRN PRN Reason: Pain Discharge Medication List Acetaminophen Tab [Tylenol Tab] 500 mg PO DAILY PRN 04/08/21 [History] Follow up Appointment(s)/Referral(s): Lani Turcios MD [STAFF PHYSICIAN] - 1 Week José Junior MD [STAFF PHYSICIAN] - 1 Week Activity/Diet/Wound Care/Special Instructions: Do not drive if taking narcotic pain medication Teaching drain care/straining record twice a day and as needed May shower after 48 hours Call if has any increased pain/fever/redness Discharge Disposition: HOME SELF-CARE
--- NOTE | 2021-05-12 20:53 | P.CONS ---
History of Present Illness - Reason for Consult Consult date: 05/12/21 Medical management Requesting physician: Lani Turcios - Chief Complaint Breast surgery - History of Present Illness Consultation: This is a very pleasant 45-year-old patient, on July 22 last year was diagnosed with breast cancer. Has undergone 6 rounds of chemotherapy. Patient underwent acquired loss right and left breast for by a major reconstruction. This was carried out by karen Granados, and Dr. Junior. This was done yesterday. Patient has ANTONIO drain. Some pain at the operative site. Patient denies any shortness of breath. No dizziness or lightheadedness. No change in bowel or urine patent. Oral intake fair. Patient having some trouble with sleeping. Is a smoker. Does take cannabis edibles for nausea and pain control. Review of systems: GEN.: None EYES: None HEENT: None NECK: None RESPIRATORY: None CARDIOVASCULAR: None GASTROINTESTINAL: None GENITOURINARY: None MUSCULOSKELETAL: None LYMPHATICS: None HEMATOLOGICAL: None PSYCHIATRY: Slightly anxious NEUROLOGICAL: None Past medical history to include: ; Cancer 2004, right breast cancer stage IB followed by chemotherapy 6 rounds. Insomnia. Nicotine dependence Social history: This with her fianc with 5 children. Half a pack a day. Alcohol socially. Does cannabis edibles. Family history: Skin cancer Physical examination: VITAL SIGNS: 98.2, 60, 18, 104/67, 96% GENERAL: BMI 32.7, comfortable. EYES: Pupils equal. Conjunctiva normal. HEENT: External appearance of nose and ears normal, oral cavity grossly normal. CHEST wall: Dressing with ANTONIO drain NECK: JVD not raised; masses not palpable. HEART: First and second heart sounds are normal; no edema. LUNGS: Respiratory rate normal; clear to auscultation. ABDOMEN: Soft, nontender, liver spleen not palpable, no masses palpable. PSYCH: Alert and oriented x3; mood and affect normal. NEUROLOGICAL: Cranial nerves grossly intact; no facial asymmetry, power and sensation grossly intact. LYMPHATICS: No lymph nodes palpable in the axilla and neck INVESTIGATIONS, reviewed in the clinical context: WBC 10.6 hemoglobin 12 platelets 170 Assessment and plan: -Bilateral mastectomy for right breast cancer stage IB. Previously received 6 cycles of chemo therapy. Patient be going home with ANTONIO drain -Chronic nicotine dependence, sed rate smoker Patient doesn't wish to use nicotine patch. Discussed with the finance not to smoke in front of her -Chronic insomnia intermittent Use melatonin when necessary Smoke also was done at length with the patient. Other questions answered. Follow-up with PCP upon discharge. Thank you Dr. Rust Past Medical History Past Medical History: Cancer, Osteoarthritis (OA) Additional Past Medical History / Comment(s): cervical cancer 2004; right breast cancer stage 1B; -6 ROUNDS OF CHEMO-LAST ROUND 02/26/21 History of Any Multi-Drug Resistant Organisms: None Reported Past Surgical History: Section Additional Past Surgical History / Comment(s): Cervical cancer SX-CERVICAL SCRAPPING. PORT A CATH-HASN'T BEEN FLUSHED IN 2 1/2 MONTHS. C-SEC X 3 Past Anesthesia/Blood Transfusion Reactions: No Reported Reaction Additional Past Anesthesia/Blood Transfusion Reaction / Comm: WAS GIVEN TOO MUCH MORPHINE AFTER CERVICAL PROCEDURE AND WAS CONFUSED Past Psychological History: No Psychological Hx Reported Smoking Status: Current every day smoker Past Alcohol Use History: Occasional Additional Past Alcohol Use History / Comment(s): Has been smoking since 15 yrs old,<1 PPD. Past Drug Use History: Marijuana Additional Drug Use History / Comment(s): Uses Marijuana (CBD/Edibles) daily. Aware no use 24 hrs prior to procedure. - Past Family History Mother Family Medical History: Cancer Additional Family Medical History / Comment(s): Skin cancer. Father Family Medical History: Cancer Additional Family Medical History / Comment(s): Breast cancer. Medications and Allergies Home Medications Medication Instructions Recorded Confirmed Type Acetaminophen Tab [Tylenol Tab] 500 mg PO DAILY PRN 04/08/21 05/11/21 History Allergies Allergy/AdvReac Type Severity Reaction Status Date / Time morphine AdvReac Confusion Verified 05/11/21 13:40 Physical Exam Vitals: Vital Signs Temp Pulse Resp BP Pulse Ox 05/12/21 08:15 98.2 F 60 18 104/67 96 05/12/21 06:16 97.9 F 65 16 102/69 94 L 05/12/21 02:00 98.1 F 69 16 115/74 95 05/12/21 00:17 94 L 05/12/21 00:16 88 L 05/12/21 00:14 61 16 92 L 05/11/21 22:24 51 L 14 94/68 95 05/11/21 21:52 98.1 F 55 L 14 106/71 95 05/11/21 20:56 59 L 16 116/73 98 Intake and Output 05/12/21 05/12/21 05/12/21 06:59 14:59 22:59 Intake Total 200 800 Output Total 765 170 Balance -565 630 Intake: Oral 200 800 Output: Drainage 165 170 drain #1 right axilla 30 60 drain#2 lower right 90 40 drain#3 45 70 Urine 600 Uretheral (Andersen) 100 Other: Voiding Method Toilet # Voids 1 3 Results CBC & Chem 7: 05/12/21 05:06 Labs: Abnormal Lab Results - Last 24 Hours (Table) 05/12/21 05/12/21 Range/Units 05:06 06:18 RDW 16.7 H (11.5-15.5) % Neutrophils # 8.2 H (1.3-7.7) k/uL POC Glucose (mg/dL) 104 H (75-99) mg/dL
== END 2021-05-12 12:20 | disposition home or self-care (01) ==
LOC: OR 06:29 → 6PED 14:15 → OR 21:57 → 6PED 21:57
PROVIDERS: ADMIT Surgery; ATTEND Surgery
DX: C50.911 Malignant neoplasm of unspecified site of right female breast (principal); C50.811 Malignant neoplasm of overlapping sites of right female breast; C50.611 Malignant neoplasm of axillary tail of right female breast; F17.210 Nicotine dependence, cigarettes, uncomplicated; F12.90 Cannabis use, unspecified, uncomplicated; M19.90 Unspecified osteoarthritis, unspecified site; F51.04 Psychophysiologic insomnia; N64.4 Mastodynia; Z88.5 Allergy status to narcotic agent; Z85.41 Personal history of malignant neoplasm of cervix uteri; Z92.21 Personal history of antineoplastic chemotherapy; Z80.8 Family history of malignant neoplasm of other organs or systems; Z80.49 Family history of malignant neoplasm of other genital organs; Z80.3 Family history of malignant neoplasm of breast; Z80.0 Family history of malignant neoplasm of digestive organs
CPT/HCPCS: 19303; 38525; 19285; 94760; 81025; 85025; 88307; 76098; 38792; G0378 ×2; C1889; C1763; A9520; J2250; J1200; J1100; J0690 ×2; J2405; J2001; J3010; J1170 ×4; J1885; J0330; J2704; J1644 ×2

== ENCOUNTER → 2021-05-28 | Outpatient (CLI) | payer OTHER ==
[2021-05-28 14:27] VITALS: BP 90/67; PULSE 96; RESP 18; TEMP 99.2
--- NOTE | 2021-05-28 14:59 | P.PN ---
Progress Note - Text Progress Note Date: 05/28/21 Iram is a 45-year-old white female status [place] [id number]. Postoperatively she states she was doing well initially but within the last 24 hours developed purulent drainage and erythema of the left breast. She has been seen postoperatively by Dr. Pickard and was doing well at that time. Secondary to the purulent drainage and erythema of the left breast site I have recommended that she be followed up with plastic surgery at this time. I have talked to Dr. Murillo in their office and he has agreed to see her today. She is going there at this time. Physical examination: Right breast incision clean and dry no evidence of infection Left breast pursestring area with purulent drainage/erythema of the lower medial aspect of the breast Impression: Infection left chest wall/cellulitis Plan: 1. Follow up with plastic surgery 2. Patient will follow up here next week CC: Dr. De La Cruz. Dr. Box
== END ==
LOC: WWCWWP 13:23
PROVIDERS: ATTEND Surgery
DX: L76.82 Other postprocedural complications of skin and subcutaneous tissue (principal); F17.200 Nicotine dependence, unspecified, uncomplicated; Z88.5 Allergy status to narcotic agent

== ENCOUNTER 2021-07-09 09:30 | Emergency (ER) | payer OTHER ==
[2021-07-09 09:35] VITALS: TEMP 97.6
[2021-07-09] MEDS ORDERED: METOCLOPRAMIDE 5 MG/ML 2 ML VIAL IVP STA (10:02)
[2021-07-09] MEDS ORDERED: MECLIZINE 12.5 MG TAB PO STA (10:02)
[2021-07-09 10:53] LABS: ALT 14 U/L (4-34); AST 21 U/L (14-36); African American GFR (CKD) >90 (>60 ml/min/1.73 sqM); Albumin 3.6 g/dL (3.5-5.0); Alkaline Phosphatase 96 U/L (38-126); Anion Gap 6 mmol/L; Blood Urea Nitrogen 16 mg/dL (7-17); Calcium 9.1 mg/dL (8.4-10.2); Carbon Dioxide 22 mmol/L (22-30); Chloride 108 mmol/L (98-107); Glucose 109 mg/dL (74-99); Non-African American GFR(CKD) >90 (>60 ml/min/1.73 sqM); Potassium 4.4 mmol/L (3.5-5.1); Sodium 136 mmol/L (137-145); Total Bilirubin 0.4 mg/dL (0.2-1.3); Total Protein 6.4 g/dL (6.3-8.2)
[2021-07-09] MEDS ORDERED: diphenhydrAMINE 50 MG/ML 1 ML VIAL IVP STA (10:54)
[2021-07-09 10:57] LABS: Basophils % (A) 1 %; Eosinophils # (A) 0.2 k/uL (0-0.7); Eosinophils % (A) 3 %; HCT 41.7 % (34.0-46.0); HGB 13.2 gm/dL (11.4-16.0); Lymphocytes # (A) 1.1 k/uL (1.0-4.8); Lymphocytes % (A) 15 %; MCH 27.7 pg (25.0-35.0); MCHC 31.7 g/dL (31.0-37.0); Monocytes # (A) 0.3 k/uL (0-1.0); Monocytes % (A) 5 %; Neutrophils # (A) 5.7 k/uL (1.3-7.7); Neutrophils % (A) 77 %; Platelet Count 216 k/uL (150-450); RBC 4.77 m/uL (3.80-5.40); RDW 14.8 % (11.5-15.5); WBC 7.4 k/uL (3.8-10.6)
[2021-07-09 10:59] LABS: MCV 87.4 fL (80.0-100.0)
[2021-07-09 11:12] LABS: INR 0.9 (<1.2)
--- NOTE | 2021-07-09 11:53 | CT ---
EXAMINATION TYPE: CT brain wo con DATE OF EXAM: 07/09/2021 COMPARISON: None HISTORY: Dizziness CT DLP: 1052.4 mGycm. Automated Exposure Control for Dose Reduction was Utilized. TECHNIQUE: CT scan of the head is performed without contrast. FINDINGS: There is no acute intracranial hemorrhage, mass effect, or midline shift identified. The ventricles and sulci are within normal limits in size. The globes are intact and the visualized sin uses are clear. IMPRESSION: No acute intracranial hemorrhage, mass effect, or midline shift is seen. If symptoms per sist consider MRI.
[2021-07-09 12:13] LABS: Appearance,Urine Clear (Clear); Bilirubin,Urine Negative (Negative); Blood,Urine Negative (Negative); Color,Urine Light Yellow; Glucose,Urine (UA) Negative (Negative); Ketones,Urine Negative (Negative); Leukocyte Esterase,Urine Negative (Negative); Nitrite,Urine Negative (Negative); Protein,Urine Negative (Negative); Specific Gravity,Urine 1.011 (1.001-1.035); Urobilinogen,Urine <2.0 mg/dL (<2.0)
--- NOTE | 2021-07-09 12:23 | ED ---
General Adult HPI - General Chief complaint: Dizziness Stated complaint: Dizziness Time Seen by Provider: 07/09/21 09:51 Source: patient, family, RN notes reviewed Mode of arrival: ambulatory - History of Present Illness Initial comments: Patient is a pleasant 45-year-old female presenting to the emergency Department with complaints of dizziness. Onset of symptoms was when she woke this morning. Patient sat up and became very dizzy. Patient describes this as a spinning sen sation. Patient was nauseated. Symptoms increased greatly with head movement and upright position. Symptoms improve with lying flat. No history of similar symptoms previously. No weakness. No confusion. No speech problems. Patient does have history of breast cancer with mastectomy couple of months ago. - Related Data Previous Rx's Medication Instructions Recorded Meclizine [Antivert] 25 mg PO TID PRN #12 tab 07/09/21 Allergies Allergy/AdvReac Type Severity Reaction Status Date / Time morphine AdvReac Confusion Verified 07/09/21 11:10 Review of Systems ROS Statement: Those systems with pertinent positive or pertinent negative responses have been documented in the HPI. ROS Other: All systems not noted in ROS Statement are negative. Constitutional: Denies: fever Eyes: Denies: eye pain ENT: Denies: ear pain Respiratory: Denies: cough Cardiovascular: Denies: chest pain Endocrine: Denies: fatigue Gastrointestinal: Denies: abdominal pain Genitourinary: Denies: dysuria Musculoskeletal: Denies: back pain Skin: Denies: rash Neurological: Reports: vertigo. Denies: headache, weakness, numbness, paresthesias, confusion Past Medical History Past Medical History: Cancer, Osteoarthritis (OA) Additional Past Medical History / Comment(s): cervical cancer 2004; right breast cancer stage 1B; -6 ROUNDS OF CHEMO-LAST ROUND 02/26/21 History of Any Multi-Drug Resistant Organisms: None Reported Past Surgical History: Section Additional Past Surgical History / Comment(s): Cervical cancer SX-CERVICAL SCRAPPING. PORT A CATH-HASN'T BEEN FLUSHED IN 2 1/2 MONTHS. C-SEC X 3 Past Anesthesia/Blood Transfusion Reactions: No Reported Reaction Additional Past Anesthesia/Blood Transfusion Reaction / Comment(s): WAS GIVEN TOO MUCH MORPHINE AFTER CERVICAL PROCEDURE AND WAS CONFUSED Past Psychological History: No Psychological Hx Reported Smoking Status: Current every day smoker Past Alcohol Use History: Occasional Past Drug Use History: Marijuana - Past Family History Mother Family Medical History: Cancer Additional Family Medical History / Comment(s): Skin cancer. Father Family Medical History: Cancer Additional Family Medical History / Comment(s): Breast cancer. General Exam Limitations: no limitations General appearance: alert, in no apparent distress Head exam: Present: normocephalic Eye exam: Present: normal appearance, PERRL, EOMI. Absent: nystagmus ENT exam: Present: normal oropharynx Neck exam: Present: normal inspection Respiratory exam: Present: normal lung sounds bilaterally Cardiovascular Exam: Present: regular rate, normal rhythm GI/Abdominal exam: Present: soft. Absent: tenderness Extremities exam: Present: normal inspection. Absent: pedal edema, calf tenderness Neurological exam: Present: alert, oriented X3, CN II-XII intact. Absent: motor sensory deficit Expanded Neurological exam: Present: protecting the airway Speech: Present: fluid speech Cranial nerves: EOM's Intact: Normal Cerebellar function: Finger to Nose: Normal Sensory exam: Upper Extremity Light Touch: Normal, Lower Extremity Light Touch: Normal Motor strength exam: RUE: 5, LUE: 5, RLE: 5, LLE: 5 Eye Response: (4) open spontaneously Motor Response: (6) obeys commands Verbal Response: (5) oriented Psychiatric exam: Present: normal affect, normal mood Skin exam: Present: normal color Course Vital Signs 07/09/21 09:32 Temperature 97.6 F Pulse Rate 70 Respiratory 20 Rate Blood Pressure 137/83 O2 Sat by Pulse 97 Oximetry EKG Findings - EKG Comments: EKG Findings:: Normal sinus rhythm with a rate of 61. OR 1:30. QRS 84. QT 450. QTC 453. Normal axis. Normal QRS. No acute ST change. Medical Decision Making - Medical Decision Making Patient reevaluated and near symptom-free. Patient and family updated on results and need for follow-up. Patient was able to get up and ambulate to the restroom without difficulty. - Lab Data Result diagrams: 07/09/21 10:24 07/09/21 10:24 Lab Results 07/09/21 07/09/21 07/09/21 Range/Units 10:24 10:24 10:24 WBC 7.4 (3.8-10.6) k/uL RBC 4.77 (3.80-5.40) m/uL Hgb 13.2 (11.4-16.0) gm/dL Hct 41.7 (34.0-46.0) % MCV 87.4 D (80.0-100.0) fL MCH 27.7 (25.0-35.0) pg MCHC 31.7 (31.0-37.0) g/dL RDW 14.8 (11.5-15.5) % Plt Count 216 (150-450) k/uL MPV 8.0 Neutrophils % 77 % Lymphocytes % 15 % Monocytes % 5 % Eosinophils % 3 % Basophils % 1 % Neutrophils # 5.7 (1.3-7.7) k/uL Lymphocytes # 1.1 (1.0-4.8) k/uL Monocytes # 0.3 (0-1.0) k/uL Eosinophils # 0.2 (0-0.7) k/uL Basophils # 0.0 (0-0.2) k/uL PT 10.0 (9.0-12.0) sec INR 0.9 (<1.2) APTT 22.0 (22.0-30.0) sec Sodium (137-145) mmol/L Potassium (3.5-5.1) mmol/L Chloride (98-107) mmol/L Carbon Dioxide (22-30) mmol/L Anion Gap mmol/L BUN (7-17) mg/dL Creatinine (0.52-1.04) mg/dL Est GFR (CKD-EPI)AfAm (>60 ml/min/1.73 sqM) Est GFR (CKD-EPI)NonAf (>60 ml/min/1.73 sqM) Glucose (74-99) mg/dL Plasma Lactic Acid Mikal (0.7-2.0) mmol/L Calcium (8.4-10.2) mg/dL Total Bilirubin (0.2-1.3) mg/dL AST (14-36) U/L ALT (4-34) U/L Alkaline Phosphatase (38-126) U/L Total Protein (6.3-8.2) g/dL Albumin (3.5-5.0) g/dL Urine Color Light Yellow Urine Appearance Clear (Clear) Urine pH 5.0 (5.0-8.0) Ur Specific [place] 1.011 (1.001-1.035) Urine Protein Negative (Negative) Urine Glucose (UA) Negative (Negative) Urine Ketones Negative (Negative) Urine Blood Negative (Negative) Urine Nitrite Negative (Negative) Urine Bilirubin Negative (Negative) Urine Urobilinogen <2.0 (<2.0) mg/dL Ur Leukocyte Esterase Negative (Negative) 07/09/21 07/09/21 Range/Units 10:24 10:24 WBC (3.8-10.6) k/uL RBC (3.80-5.40) m/uL Hgb (11.4-16.0) gm/dL Hct (34.0-46.0) % MCV (80.0-100.0) fL MCH (25.0-35.0) pg MCHC (31.0-37.0) g/dL RDW (11.5-15.5) % Plt Count (150-450) k/uL MPV Neutrophils % % Lymphocytes % % Monocytes % % Eosinophils % % Basophils % % Neutrophils # (1.3-7.7) k/uL Lymphocytes # (1.0-4.8) k/uL Monocytes # (0-1.0) k/uL Eosinophils # (0-0.7) k/uL Basophils # (0-0.2) k/uL PT (9.0-12.0) sec INR (<1.2) APTT (22.0-30.0) sec Sodium 136 L (137-145) mmol/L Potassium 4.4 (3.5-5.1) mmol/L Chloride 108 H (98-107) mmol/L Carbon Dioxide 22 (22-30) mmol/L Anion Gap 6 mmol/L BUN 16 (7-17) mg/dL Creatinine 0.70 (0.52-1.04) mg/dL Est GFR (CKD-EPI)AfAm >90 (>60 ml/min/1.73 sqM) Est GFR (CKD-EPI)NonAf >90 (>60 ml/min/1.73 sqM) Glucose 109 H (74-99) mg/dL Plasma Lactic Acid Mikal 1.0 (0.7-2.0) mmol/L Calcium 9.1 (8.4-10.2) mg/dL Total Bilirubin 0.4 (0.2-1.3) mg/dL AST 21 (14-36) U/L ALT 14 (4-34) U/L Alkaline Phosphatase 96 (38-126) U/L Total Protein 6.4 (6.3-8.2) g/dL Albumin 3.6 (3.5-5.0) g/dL Urine Color Urine Appearance (Clear) Urine pH (5.0-8.0) Ur Specific [place] (1.001-1.035) Urine Protein (Negative) Urine Glucose (UA) (Negative) Urine Ketones (Negative) Urine Blood (Negative) Urine Nitrite (Negative) Urine Bilirubin (Negative) Urine Urobilinogen (<2.0) mg/dL Ur Leukocyte Esterase (Negative) - Radiology Data Radiology results: report reviewed (Computed tomography scan of brain shows no acute process) Disposition Clinical Impression: Vertigo Disposition: HOME SELF-CARE Condition: Stable Instructions (If sedation given, give patient instructions): Dizziness (ED) Additional Instructions: Please do follow-up with your primary care physician and oncologist in the next couple of days for recheck. Consider ENT or neurology follow-up. Return for weakness, confusion, speech problems, uncontrolled dizziness, worsening symptoms or any other concerns. Avoid Reglan as you did have a reaction to this. Hifr-efl-eoibcen Antivert as needed. Prescription sent to pharmacy. Prescriptions: Meclizine [Antivert] 25 mg PO TID PRN #12 tab PRN Reason: dizziness Is patient prescribed a controlled substance at d/c from ED?: No Referrals: Carl Cook MD [Primary Care Provider] - 1-2 days Eliseo Rodríguez MD [STAFF PHYSICIAN] - 1-2 days Time of Disposition: 12:28
[2021-07-09 12:38] VITALS: BP 107/92; PULSE 72; RESP 18
== END 2021-07-09 12:39 | disposition home or self-care (01) ==
LOC: EC 09:30
DX: R42 Dizziness and giddiness (principal); M19.90 Unspecified osteoarthritis, unspecified site; F17.200 Nicotine dependence, unspecified, uncomplicated; F12.90 Cannabis use, unspecified, uncomplicated; Z88.5 Allergy status to narcotic agent; Z85.41 Personal history of malignant neoplasm of cervix uteri; Z85.3 Personal history of malignant neoplasm of breast
CPT/HCPCS: 99284; 96374; 96375; 36415; 80053; 83605; 85025; 85610; 85730; 81003; 70450; J1200; J2765

== ENCOUNTER 2022-03-29 10:05 | Day surgery (SDC) | payer OTHER ==
[~2022-03-29 10:05] MED LIST changes: -ACETAMINOPHEN TAB 500 MG TAB PO PRN; -HEPARIN SODIUM,PORCINE/PF 5,000 UNIT/0.5 ML SYRINGE SQ PRN; +ONDANSETRON 4 MG/2 ML VIAL IVP ONE
[2022-03-29 11:41] LABS: Basophils # (A) 0.1 k/uL (0-0.2); Basophils % (A) 1 %; Eosinophils # (A) 0.4 k/uL (0-0.7); Eosinophils % (A) 6 %; HCT 42.7 % (34.0-46.0); HGB 14.3 gm/dL (11.4-16.0); Lymphocytes # (A) 1.7 k/uL (1.0-4.8); Lymphocytes % (A) 27 %; MCHC 33.4 g/dL (31.0-37.0); Monocytes # (A) 0.4 k/uL (0-1.0); Monocytes % (A) 6 %; Neutrophils # (A) 3.7 k/uL (1.3-7.7); Neutrophils % (A) 59 %; Platelet Count 218 k/uL (150-450); RBC 4.75 m/uL (3.80-5.40); RDW 14.9 % (11.5-15.5); WBC 6.3 k/uL (3.8-10.6)
[2022-03-29] MEDS ORDERED: LIDOCAINE 2% INJ 20 MG/ML (2 ML VIAL) ONE (13:43)
[2022-03-29] MEDS ORDERED: HYDROmorphone (PF) 1 MG/ML ONE (13:43)
[2022-03-29] MEDS ORDERED: fentaNYL (PF) 50 MCG/ML 2 ML AMP ONE (13:43)
[2022-03-29] MEDS ORDERED: ROCURONIUM 10 MG/ML (5 ML VIAL) IV ONE (13:43)
[2022-03-29] MEDS ORDERED: MIDAZOLAM 2 MG/2 ML VIAL ONE (13:43)
[2022-03-29] MEDS ORDERED: PROPOFOL 10 MG/ML 20 ML VIAL IV ONE (13:43)
[2022-03-29] MEDS ORDERED: SUCCINYLCHOLINE CHLORIDE 100 MG/5 ML SYR IV ONE (13:43)
[2022-03-29] MEDS ORDERED: SODIUM CHLORIDE 0.9% 50 ML with ceFAZolin 2,000 MG IV ONE ×2 (14:18)
[2022-03-29] MEDS ORDERED: LACTATED RINGERS 1,000 ML IV ONE (15:08)
[2022-03-29 15:25] VITALS: TEMP 97.1
[2022-03-29] MEDS: HYDROmorphone 0.5 MG/0.5 ML SYRINGE IVP PRN ×4 (15:33→16:28)
[2022-03-29] MEDS: MIDAZOLAM 2 MG/2 ML VIAL IV PRN ×2 (15:56→16:01)
[2022-03-29 16:46] VITALS: RESP 18
[2022-03-29] MEDS ORDERED: oxyCODONE-APAP 5-325MG 1 EACH TAB ONE (16:50)
[2022-03-29 17:28] VITALS: BP 128/89; PULSE 69
--- NOTE | 2022-03-29 20:55 | OP ---
OPERATIVE REPORT DATE OF SURGERY: March 29, 2022. SURGEON: Dr. José Junior. PREOPERATIVE DIAGNOSES: 1. Acquired loss left breast. 2. Personal history of breast cancer. 3. Personal history of mastectomy. POSTOPERATIVE DIAGNOSES: 1. Acquired loss left breast. 2. Personal history of breast cancer. 3. Personal history of mastectomy. OPERATIVE PROCEDURE: 1. Delayed reconstruction left breast with insertion of tissue menhaden fishing crew member and subsequent outpatient expansion. 2. Implantation of reconstructive graft for left breast reconstruction. OPERATIVE INDICATIONS: Patient is a 46-year-old female with a history of breast cancer treated by bilateral mastectomy and immediate reconstruction with tissue menhaden fishing crew member placement. The patient's postoperative course from that surgery was complicated with infection involving the left side ultimately requiring removal of the menhaden fishing crew member and then time for a wound healing by secondary intention. The patient has done well for the past 6 months, is returning to surgery now for delayed reconstruction left breast with insertion of tissue menhaden fishing crew member. The patient is aware of potential risks and complications and has requested I perform the surgery. OPERATIVE PROCEDURE SUMMARY: The patient is in the preoperative area, markings made. Procedure reviewed. All questions answered. She is transported to the operating room where she was placed in supine position. Following induction of general tracheal anesthesia, the patient is prepped and draped in usual fashion. The left mastectomy scar was oriented transverse. Marker was used to draw diagram following the scar. Incision then made using 10 blade scalpel dividing skin in full-thickness fashion followed by scar station divide subcutaneous tissue until identifying muscle tissue layers. The scar tissue was then dissected off the muscle tissue layers to release contour irregularities. Then an incision made through the muscle where exposed until identifying the deep surface. A fair amount of scar tissue was present here. Cautery was used to elevate the muscle flap from prior surgery off the chest wall with the aid of lighted retractors. Once the muscle flap was reelevated, irrigation was performed. Hemostasis maintained with cautery. Inferiorly there was thicker scar tissue and left muscle flap available. Muscle cuff just in the area of the inframammary fold was elevated. The cavity was sized. Irrigation was performed. The tissue menhaden fishing crew member opened on the field from [employer], model 133 S-FX-13-T measuring 550 mL, serial #[id number]. The device was only handled by surgeon. All air extracted and 50 mL 0.9 normal saline instilled. This was inserted into the cavity. It was clear that muscle flap tissue could not close over the menhaden fishing crew member. The menhaden fishing crew member was temporarily removed, placed in a sterile saline bath. SurgiMend reconstructive graft measuring 10 x 15 cm thin mesh was opened on the field. Once revitalized room temperature saline the SurgiMend was cut in half and half of the SurgiMend was used to perform inferior sling along the bottom portion with the muscle flap was not present in significant manner. The SurgiMend was sutured to the inferior muscle cuff described earlier using short running 3.0 Vicryl sutures. The menhaden fishing crew member reinserted into the submuscular position and then the SurgiMend advanced over the menhaden fishing crew member but deep to the muscle flap and then inset to the remaining muscle flap using interrupted 3-0 Vicryl. Complete coverage now obtained. The menhaden fishing crew member was now filled to a volume of 200 mL. This placed even tension on the muscle flap in SurgiMend. The cavity was irrigated. Hemostasis maintained with cautery. The Robinson's layer were noted. It was approximated using interrupted 4-0 Monocryl and then the deep dermis approximated with inverted interrupted 4-0 Monocryl and rob used to complete the skin closure. Surgical flores cleansed with saline dried and cover with Kerlix squares secured with 3 Medipore tape. The patient was then awakened from anesthetic, extubated in the operating room, transferred to recovery room in good condition. Stable vital signs. ESTIMATED BLOOD LOSS: 40 mL. There were no complications. MMODL / IJN: [id number] /
== END 2022-03-29 17:45 | disposition home or self-care (01) ==
LOC: OR 10:05
PROVIDERS: ATTEND Plastic Surgery
DX: Z90.12 Acquired absence of left breast and nipple (principal); F17.200 Nicotine dependence, unspecified, uncomplicated; Z88.1 Allergy status to other antibiotic agents; Z85.3 Personal history of malignant neoplasm of breast; Z88.5 Allergy status to narcotic agent
CPT/HCPCS: 81025; 85025; 19357; 15777; C1889; C1763; J2250; J1100; J2405; J0690; J3010; J1170 ×2; J0330; J2704; J2001